=== PATIENT | male | born 1975 | race Caucasian/White ===

== ENCOUNTER 2022-06-09 07:22 | Outpatient (CLI) | payer OTHER, SELFPAY ==
--- NOTE | ~2022-06-09 | US_ITS ---
EXAMINATION: US retroperitoneal duplex ltd DATE: 06/09/2022 15:07 TRANSLATOR/INTERPRETER INDICATION: Essential hypertension. TECHNIQUE: Sonographic imaging of the kidneys was performed with a 3.5 MHz transducer. Retroperitone al duplex sonogram of the renal arteries also obtained. FINDINGS: No focal flow abnormalities are seen in the renal arteries on color Doppler. The peak syst olic velocity ranges of the right and left renal arteries and aorta are 61 cm per second, 46 cm per s econd, and 65 cm per second, respectively. The velocities and renal to aortic ratios are within arianna l limits. Incidental note is made of gallbladder polyps, largest measuring 6 mm. Renal echotexture is normal bilaterally without hydronephrosis, contour deforming mass or renal calcu li. Right kidney measures 12.9 cm. Left kidney measures 12.1 cm. IMPRESSION: 1. No Doppler evidence of renal artery stenosis. 2: Gallbladder polyps, largest measuring 6 mm. Reviewed, dictated and finalized at location A. SLATOR/INTERPRETER
[2022-06-09 07:38] LABS: Basophils Absolute Auto 0.09 K/mm3 (0.00-0.10); Basophils Percent Auto 1.3 % (0.0-1.0); Eosinophils Percent Auto 2.8 % (1.0-6.0); Hematocrit 54.6 % (40.0-54.0); Hemoglobin 18.4 g/dL (14.0-18.0); Immature Granulocyte Absolute 0.06 K/mm3 (0.00-0.00); Immature Granulocyte Percent A 0.8 % (0.0-0.0); Lymphocytes Absolute Auto 1.54 K/mm3 (1.10-4.50); Lymphocytes Percent Auto 21.6 % (18.0-42.0); Mean Corpuscular HGB Conc 33.7 g/dL (32.0-36.0); Mean Corpuscular Volume 89.1 fL (78.0-102.0); Mean Platelet Volume 10.3 fl (8.7-11.0); Monocytes Absolute Auto 0.59 K/mm3 (0.10-0.90); Monocytes Percent Auto 8.3 % (2.0-11.0); Neutrophils Absolute Auto 4.7 K/mm3 (1.7-7.2); Neutrophils Percent Auto 65.2 % (50.0-70.0); Platelet Count Result 275 K/mm3 (150-420); Red Blood Count 6.13 M/mm3 (4.70-6.10); Red Cell Distribution Width 13.6 % (11.6-14.4); White Blood Count 7.1 K/mm3 (4.8-10.8)
== END 2022-06-09 07:23 | disposition home or self-care (01) ==
LOC: CHSIMG 07:26
PROVIDERS: PCP Family Medicine; Visit Provider Physician Assistant
DX: D75.1 Secondary polycythemia (principal); I10 Essential (primary) hypertension
CPT/HCPCS: 36415; 85025; 93976

== ENCOUNTER 2022-09-21 16:34 | Outpatient (CLI) | payer OTHER, SELFPAY ==
[2022-09-21 16:56] LABS: Basophils Absolute Auto 0.09 K/mm3 (0.00-0.10); Basophils Percent Auto 1.2 % (0.0-1.0); Eosinophils Absolute Auto 0.21 K/mm3 (0.02-0.50); Eosinophils Percent Auto 2.7 % (1.0-6.0); Hematocrit 50.4 % (40.0-54.0); Hemoglobin 17.2 g/dL (14.0-18.0); Immature Granulocyte Absolute 0.05 K/mm3 (0.00-0.00); Immature Granulocyte Percent A 0.7 % (0.0-0.0); Lymphocytes Absolute Auto 1.54 K/mm3 (1.10-4.50); Mean Corpuscular HGB Conc 34.1 g/dL (32.0-36.0); Mean Corpuscular Hemoglobin 30.1 pg (27.0-31.0); Mean Corpuscular Volume 88.3 fL (78.0-102.0); Mean Platelet Volume 10.2 fl (8.7-11.0); Monocytes Absolute Auto 0.83 K/mm3 (0.10-0.90); Monocytes Percent Auto 10.8 % (2.0-11.0); Neutrophils Percent Auto 64.6 % (50.0-70.0); Platelet Count Result 311 K/mm3 (150-420); Red Blood Count 5.71 M/mm3 (4.70-6.10); Red Cell Distribution Width 14.1 % (11.6-14.4); White Blood Count 7.7 K/mm3 (4.8-10.8)
[2022-09-21 17:00] LABS: HCO3 ABG 26.9 mmol/L (23-29); Oxygen Content ABG 24.9 %vol (16.0-22.0); Oxygen Saturation ABG 95.9 % (95-97); Oxyhemoglobin 94.7 % (94-100); PCO2 ABG 35.4 mmHg (35-45); Total Hemoglobin 18.7 g/dL (12.0-18.0)
[2022-09-21 17:03] LABS: Device ROOM AIR; Modified Allen's Test Pass; Site Drawn LEFT RADIAL
[2022-09-26 05:04] LABS: Erythropoietin (EPO) 19.6 mIU/mL (2.6-18.5)
[2022-10-04 10:28] LABS: CALR Exon 9 Mutation Not Detected (Not Detected); CSF3R Exon 14/17 Mutation Not Detected (Not Detected); JAK2 Exon 12 Mutation Not Detected (Not Detected); JAK2 V617F Mutation Not Detected (Not Detected); MPL Exon 10 Mutation Not Detected (Not Detected)
== END 2022-09-21 16:35 | disposition home or self-care (01) ==
LOC: CHSLAB 16:38
PROVIDERS: PCP Family Medicine; Visit Provider Internal Medicine Hematology & Oncology
DX: D75.1 Secondary polycythemia (principal)
CPT/HCPCS: 36415; 36600; 81219; 81270; 81279; 81339; 81479; 82668; 82805; 85025; 88302; 88321

== ENCOUNTER 2023-04-28 07:12 | Outpatient (CLI) | payer OTHER, SELFPAY ==
--- NOTE | ~2023-04-28 | US_ITS ---
EXAMINATION: US right upper quadrant DATE: 04/28/2023 07:42 INDICATION: Gallbladder polyp. TECHNIQUE: Multiple grayscale and Doppler ultrasound images of the abdomen were obtained. COMPARISON: None FINDINGS: The visualized portions of the head, body, and tail of the pancreas are normal. There is a 1.9 cm hyperechoic mass in the liver. There is normal flow in main portal vein. The gallbladder is no rmal in size and contains sludge. No gallstones or gallbladder wall thickening. There is no sonograph ic Pereira sign. The common duct is normal and measures 3 mm. IMPRESSION: 1. Gallbladder sludge. No evidence of acute cholecystitis. 2. 1.9 cm hyperechoic liver mass. In the absence of known malignancy or chronic liver disease, this f inding is likely a hemangioma. Reviewed, dictated and finalized at location E. IMPRESSION: 1. Gallbladder sludge. No evidence of acute cholecystitis. 2. 1.9 cm hyperechoic liver mass. In the absence of known malignancy or chronic liver disease, this finding is likely a hemangioma.
== END 2023-04-28 07:13 | disposition home or self-care (01) ==
LOC: CHSIMG 07:13
PROVIDERS: PCP Family Medicine; Visit Provider Physician Assistant
DX: K82.4 Cholesterolosis of gallbladder (principal); K83.9 Disease of biliary tract, unspecified; R16.0 Hepatomegaly, not elsewhere classified
CPT/HCPCS: 76705

== ENCOUNTER 2024-02-21 17:21 | Emergency (ER) | payer OTHER, SELFPAY ==
[2024-02-21] VITALS (51 sets, daily range): BP systolic 112–174; BP diastolic 58–100; PULSE 64–126; RESP 15–27; TEMP 36.6; O2SAT 91–98
--- NOTE | ~2024-02-21 | XR_ITS ---
EXAMINATION: XR chest 1V portable DATE: 02/21/2024 17:58 INDICATION: Shortness of breath, chest pain/discomfort. TECHNIQUE: frontal view of the chest was obtained. COMPARISON: None FINDINGS: Wedge-shaped opacity projecting over the heart at the medial left lung base. No other airspace opacit ies, pulmonary edema, pleural effusion or pneumothorax. Heart size is within normal limits for AP dom hnique. IMPRESSION: 1. Wedge-shaped opacity medial left lung base which could represent atelectasis or pneumonia. Reviewed, dictated and finalized at location A.
--- NOTE | 2024-02-21 17:23 | ED.CHESTPAIN ---
HPI - Chest Pain General Chief Complaint: Chest Pain Stated Complaint: chest pain Time Seen by Provider: 02/21/24 17:23 Source: patient Mode of arrival: ambulatory Limitations: no limitations History of Present Illness HPI narrative: 48-year-old male with a history of hypertension on amlodipine, Coreg, dyslipidemia not on statins, MICHAEL on CPAP, positive family history of coronary artery disease( dad had his [place] at 52 years of age with multiple vascular procedures) presents to the ED with a 3 day history of -- chest discomfort. Chest discomfort is unprovoked without any relation to activity. -- lightheadedness which is worse on standing -- shortness of breath. He has shortness of breath at rest and with exercise. No paroxysmal nocturnal dyspnea. No fever or chills. nonsmoker. No history of drug use MD complaint: chest discomfort Onset (ago): day(s) ( Three days) Timing of current episode: episodic and constant Prior episodes: No Onset: during rest Pain location: substernal Pain radiation: none Severity: mild Quality: aching Relieving factors: nothing Exacerbating factors: nothing Treatment prior to arrival: none Risk Factors Coronary artery disease risk factors: hyperlipidemia and hypertension Thoracic aortic dissection risk factors: longstanding hypertension Related Data Home Medications Medication Instructions Recorded Confirmed amlodipine 10 mg tablet mg 02/21/24 carvedilol 25 mg tablet mg 02/21/24 hydrochlorothiazide 25 mg tablet mg 02/21/24 minocycline 100 mg capsule mg 02/21/24 02/21/24 testosterone cypionate 200 mg/mL mg 02/21/24 intramuscular oil Allergies Allergy/AdvReac Type Severity Reaction Status Date / Time No Known Allergies Allergy Verified 02/21/24 18:06 Review of Systems Review of Systems: All systems reviewed & are unremarkable except as noted in HPI and below Constitutional: Constitutional: Reports as per HPI and Reports no additional constitutional complaints Eyes: Eyes: Reports as per HPI and Reports no additional eye complaints ENT: Reports system reviewed and no additional complaints, except as documented and Reports as per HPI Cardiovascular: Cardiovascular: Reports as per HPI, Reports no additional cardiovascular complaints and Reports chest pain ( chest discomfort) Respiratory: Respiratory: Reports as per HPI and Reports dyspnea Gastrointestinal: Gastrointestinal: Reports as per HPI and Reports no additional gastrointestinal complaints Genitourinary: Genitourinary: Reports no additional male genitourinary complaints and Reports as per HPI Musculoskeletal: Musculoskeletal: Reports no additional musculoskeletal complaints and Reports as per HPI Integumentary/Breasts: Skin/Breast: Reports system reviewed and no additional complaints, except as docu and Reports as per HPI Neurologic: Reports system reviewed and no additional complaints, except as documented and Reports as per HPI Psychiatric: Psychiatric: Reports no additional psychiatric complaints, Reports as per HPI and Reports anxiety Endocrine: Endocrine: Reports no additional endocrine complaints and Reports as per HPI Hematologic/Lymphatic: Hematologic/Lymphatic: Reports no additional hematologic/lymphatic complaints and Reports as per HPI Allergic/Immunologic: Allergic/Immunologic: Reports no additional allergic/immunologic complaints and Reports as per HPI [facility] Past Medical History Medical History (Updated 02/21/24 @ 19:45 by Ean Caceres MD) Dyslipidemia Hypertension MICHAEL (obstructive sleep apnea) Exam Narrative: tachycardic with a heart rate of 118. Oxygen saturation of 96% on room air with a respiratory rate of 18. Const: General: ill appearing Orientation/consciousness: patient oriented x3 Limitations: no limitations HENMT: Head: normal to inspection Ears: external ears normal Face/Nose/Sinus: Normal external nose present Face and sinus: normal facial exam Mouth: Yes Ирина
--- NOTE | 2024-02-21 17:25 | ECG_ITS ---
Test Date: 2024-02-21 17:19:43 Measurements Intervals Buckner Rate: 119 P: 0 MI: 0 QRS: 2 QRSD: 98 T: 70 QT: 288 QTc: 406 Interpretive Statements ATRIAL FIBRILLATION WITH RAPID VENTRICULAR RESPONSE INTERPRETATION BASED ON A DEFAULT AGE OF 40 YEARS No previous ECG available for comparison Electronically Signed On 02-22-2024 14:19:01 CDT by Rick Muñoz M.D.
[2024-02-21] MEDS: Please add drug allergy info to patient profile. 1 EACH XX (17:40)
[2024-02-21 17:53] LABS: Basophils Percent Auto 1.1 % (0.0-1.0); Eosinophils Absolute Auto 0.24 K/mm3 (0.02-0.50); Eosinophils Percent Auto 2.7 % (1.0-6.0); Hematocrit 52.9 % (40.0-54.0); Hemoglobin 17.3 g/dL (14.0-18.0); Immature Granulocyte Absolute 0.04 K/mm3 (0.00-0.00); Immature Granulocyte Percent A 0.4 % (0.0-0.0); Lymphocytes Absolute Auto 1.86 K/mm3 (1.10-4.50); Lymphocytes Percent Auto 20.8 % (18.0-42.0); Mean Corpuscular HGB Conc 32.7 g/dL (32-36); Mean Corpuscular Hemoglobin 27.2 pg (27.0-31.0); Mean Corpuscular Volume 83.3 fL (78.0-102.0); Mean Platelet Volume 10.7 fl (8.7-11.0); Monocytes Absolute Auto 0.83 K/mm3 (0.10-0.90); Monocytes Percent Auto 9.3 % (2.0-11.0); Neutrophils Absolute Auto 5.89 K/mm3 (1.70-7.20); Neutrophils Percent Auto 65.7 % (50.0-70.0); Platelet Count Result 316 K/mm3 (150-420); Red Blood Count 6.35 M/mm3 (4.70-6.10); Red Cell Distribution Width 15.7 % (11.6-14.4)
[2024-02-21] MEDS: dilTIAZem HCl INJ 25 MG/5 ML VIAL 10 MG IV PUSH (18:16)
[2024-02-21] MEDS: ASPIRIN 81 MG CHEWABLE TABLET 324 MG PO (18:16)
[2024-02-21 18:30] LABS: Alanine Aminotransferase 32 U/L (16-63); Albumin Level 3.8 g/dL (3.4-5.0); Alkaline Phosphatase 69 U/L (46-116); Anion Gap 13 mmol/L (4-12); Aspartate Amino Transferase 24 U/L (15-37); Bilirubin,Total 1.5 mg/dL (0.00-1.00); Blood Urea Nitrogen 26 mg/dL (7-18); Carbon Dioxide 26 mmol/L (21-32); Chloride 98 mmol/L (98-108); Estimated CRCL calculation 81 ml/min; Estimated Glomerular Filt Rate 51; Glucose 85 mg/dL (70-99); NT Pro B Type Natriuretic Pept 219 pg/mL (0-125); Osmolality Calculated 287 mOsm/kg (285-295); Potassium 3.1 mmol/L (3.5-5.1); Sodium 137 mmol/L (136-145); Total Protein 7.7 g/dL (6.4-8.2)
[2024-02-21 18:31] LABS: Troponin I 6.5 ng/L (0.00-60.4)
[2024-02-21 18:43] LABS: D Dimer 0.32 mg/L (0.19-0.50); Partial Thromboplastin Time 27.3 Sec (23.9-30.70); Prothrombin Time 11.2 Seconds (9.50-12.1)
--- NOTE | 2024-02-21 19:00 | PC.NURSE ---
REPORT GIVEN TO CHRIS FIERRO.
[2024-02-21] MEDS: LACTATED RINGERS 500 ML 999 ML IV CONT (20:46)
[2024-02-21] MEDS: POTASSIUM CHLORIDE 20 MEQ ER TABLET 40 MEQ PO (20:48)
== END 2024-02-21 23:31 | disposition home or self-care (01) ==
PROVIDERS: Emergency Provider Internal Medicine Critical Care Medicine
DX: I48.20 Chronic atrial fibrillation, unspecified (principal); N17.9 Acute kidney failure, unspecified; I10 Essential (primary) hypertension; Z79.899 Other long term (current) drug therapy
CPT/HCPCS: 36415; 71045; 80053; 83605; 83880; 84443; 84484; 85025; 85380; 85610; 85730; 93005; 96361; 96374; 99284; A9270; J7120

== ENCOUNTER 2024-04-18 17:32 | Outpatient (CLI) | payer OTHER, SELFPAY ==
[2024-04-18 18:27] LABS: Hemoglobin 17.4 g/dL (14.0-18.0)
[2024-04-18 18:30] VITALS: BP 140/82; PULSE 77; RESP 18; TEMP 36.6; O2SAT 97
[2024-04-18 19:08] VITALS: BMI 52.2
--- NOTE | 2024-04-18 19:33 | PC.NURSE ---
Patient arrived on floor@1815 after being seen in lab for H&H. Patient #20 G IV initiate after obtaining H&H results. Pretreatment vitals Temp 97.9, BP 140/82, P 77, R 18. Denies pain. 250 ml of blood removed. IV discontinued intact. Pressure applied to the site for 7 minutes then dressing applied. Arm elevated during removal. Discharge instructions explained to patient and paper with instructions sent home with patient. Discharge vitals Temp 98, BP 140/79, P73, R 18, SPo2 96. Patient offered no c/o side effects from procedure and states he understood instructiions.
== END 2024-04-18 17:33 | disposition home or self-care (01) ==
PROVIDERS: Visit Provider Internal Medicine Hematology & Oncology
DX: D75.1 Secondary polycythemia (principal)
CPT/HCPCS: 36415; 85014; 85018

== ENCOUNTER 2024-07-11 16:29 | Outpatient (CLI) | payer OTHER, SELFPAY ==
[2024-07-11 16:50] VITALS: BP 175/92; PULSE 108; RESP 18; TEMP 37; O2SAT 94; BMI 44.5
[2024-07-11 16:50] LABS: Hematocrit 55.1 % (40.0-54.0); Hemoglobin 17.8 g/dL (14.0-18.0)
== END 2024-07-11 16:30 | disposition home or self-care (01) ==
PROVIDERS: PCP Family Medicine; Visit Provider Internal Medicine Hematology & Oncology
DX: D75.1 Secondary polycythemia (principal)
CPT/HCPCS: 36415; 85014; 85018; 99195

== ENCOUNTER 2024-09-12 16:38 | Outpatient (CLI) | payer OTHER, SELFPAY ==
[2024-09-12 17:00] LABS: Hemoglobin 17.4 g/dL (14.0-18.0)
--- OUTSIDE RECORDS SUMMARY | 2024-09-12 17:36 | XMS_ITS | Encounter Summary ---
Author Organization [facility] Address [address] [place] [address] Care Team Providers Care Supervisor Sewer System Name Role Phone Mary Anne Cisneros MD Primary Care Provider Encounter Details Date Type Department Care Team (Late st Contact Info) Description 09/10/2024 External Device Data [place] ABSTRACTION Provider, Abstract NO ADDRESS ON FILE Social History Tobacco Use Types Packs/Day Years Used Date Smoking Tobacco: Never Smokeless Tobacco: Never Alcohol Use Standard Drinks/Week Comments Not Currently 0 (1 standard drink = 0.6 oz pur e alcohol) Feeling Safe Answer Date Recorded Are you in a relationship wi th someone who hurts you emotionally and/or physically? 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 Legal Sex Male 7:15 PM CDT Gender Identity Male 08/13/2024 8:34 AM REPTILE FARMER Sexual Orientation Straight 08/13/2024 8: 34 AM REPTILE FARMER documented as of this encounter Plan of Treatment Upcoming Encounters Date Type Department Care Team (Late st Contact Info) Description 11/15/2024 3:00 PM CDT Office Visit [facility] [place] [address] [place] [address] Ricarda Ingram, DRESSMAKING TEACHER [address] [facility] [address] [place] [address] documented as of this encounter Visit Diagnoses Not on filedocumented in this encounter Care Teams Supervisor Sewer System Relationship Specialty Start Date End Date Mary Anne Cisneros MD [address] [place] [id number] PCP - General Family Practice 02/22/24 documented as of this encounter
--- OUTSIDE RECORDS SUMMARY | 2024-09-12 17:36 | XMS_ITS | Patient Health Summary ---
Author Organization [facility] Address [address] [place] [address] Care Team Providers Care Medical Customer Service Representative Name Role Phone Unavailable Primary Care Provider Unavailabl e Note from [facility],non-owned Affiliates and Associated Physician Practices is amultiple site organization consisting of ambulatory clinics and hospital sitesin [place], [place], [place] and [place]. This disclosure is being madepursuant to the Care Everywhere program and may not contain all information available regarding this patient. Last updated 18.[facility] Allergies No known active allergies Medications * Be aware that medications may not be up to date on this document. Alwaysverify current medications with the patient. * HYDROCHLOROTHIAZIDE PO * AmLODIPine Besylate (NORVASC PO) * Metoprolol Succinate (TOPROL XL PO) Social History Tobacco Use Types Packs/Day Years Used Date Smoking Tobacco: Never Assessed Sex and Gender Information Value Date Recorded Sex Assigned at Not on file Gender Identity Not on file Sexual Orientation Not on file Last Filed Vital Signs Vital Sign Reading Time Taken Comments Blood Pressure 134/82 01/14/2018 12:23 PM CDT Pulse - - Temperature 36.8 C (98.2 F) 01/14/2018 12:23 PM CDT Respiratory Rate 16 01/14/2018 12:23 PM CDT Oxygen Saturation - - Inhaled Oxygen Concentration - - Weight 133.8 kg (295 lb) 01/14/2018 12:23 PM CDT Height 177.8 cm (5' 10 ) 01/14/2018 12:23 PM CDT Body Mass Index 42.33 01/14/2018 12:23 PM CDT
--- OUTSIDE RECORDS SUMMARY | 2024-09-12 17:36 | XMS_ITS | Clinical Summary ---
Author Organization [facility] [place] [place] Address [address] [place] [address] Care Team Providers Care Reprographics Associate Name Role Phone Unavailable Primary Care Provider Unavailabl e Source Comments [facility],non-owned Affiliates and Associated Physician Practices is amultiple site organization consisting of ambulatory clinics and hospital sitesin [place], [place], [place] and [place]. This disclosure is being madepursuant to the Care Everywhere program and may not contain all information available regarding this patient. Last updated 18.[facility] [place] [place] Allergies No known active allergies Medications * Be aware that medications may not be up to date on this document. Alwaysverify current medications with the patient. Medication Sig Dispensed Refills Start Date End Date Status HYDROCHLOROTHIAZIDE PO Ac tive AmLODIPine Besylate (NORVASC PO) Active Metoprolol Succinate (TOPROL XL PO) Active Social History Tobacco Use Types Packs/Day Years [...] Mass Index 42.33 01/14/2018 12:23 PM CDT Plan of Treatment Health Maintenance Due Date Last Done Comments BLACK (AGES 45-75) - COL ON CA SCREENING 1976 COLON MONITORING 1976 COLONOSCOPY - COLON CA SCREENING 1976 CT COLONOGRAPHY - COLON CA SCREENING 1976 Colorectal Cancer Screening 1976 FIT - COLON CA SCREENING 1976 FLEX SIG - COLON CA SCREENING 1976 LIPID TESTING 1976 HIV SCREENING 12/10/1991 HEPATITIS C SCREENING 12/05/1994 DTAP/TDAP/TD VACCINES (1 - Tdap) 12/10/1995 HEPATITIS B VACCINE (1 of 3 - 19+ 3-dose series) 12/10/1995 SCREENING FOR DIABETES 01/14/2018 COVID-19 VACCINE (1 - 2023-2 5 season) 2024 INFLUENZA VACCINE (#1) 2024 DEPRESSION SCREENING 07/03/2024 ZOSTER VACCINE (1 of 2) 2026 HIB VACCINE Aged Out No longer eligi ble based on patient's age to complete this topic HPV VACCINE Aged Out No longer eligi ble based on patient's age to complete this topic MENINGOCOCCAL (Group B) VACC INE SHARED DECISION-MAKING Aged Out No longer eligibl e based on patient's age to complete this topic MENINGOCOCCAL GROUPS A/C/Y/W VACCINE Aged Out No longer eligible b ased on patient's age to complete this topic PNEUMOCOCCAL VACCINE Aged Out No long er eligible based on patient's age to complete this topic
--- OUTSIDE RECORDS SUMMARY | 2024-09-12 17:36 | XMS_ITS | Clinical Summary ---
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 Gender Identity Not on file Sexual Orientation Not on file Plan of Treatment Health Maintenance Due Date Last Done Comments Colorectal Cancer Screening Colonoscopy (10 Years) 1976 Annual Physical 12/10/1979 Hepatitis C 1994 DTaP, Tdap and Td Vaccines ( 1 - Tdap) 12/10/1995 12/02/1981 Hepatitis B Vaccines (1 of 3 - 19+ 3-dose series) 12/10/1995 COVID-19 Vaccine (2023-2 5 season) 2024 Influenza Adult (#1) 2024 Meningococcal B Vaccine Aged Out No l onger eligible based on patient's age to complete this topic Meningococcal Vaccine Aged Out No jolly gavin eligible based on patient's age to complete this topic Pneumococcal Vaccine: Pediat rics (0 to 5 Years) and At-Risk Patients (6 to 64 Years) Aged Out No longer eligi ble based on patient's age to complete this topic RSV Immunizations Under 20 Months Aged Out No longer eligible based on patient's age to complete this topic Insurance [employer] Care Teams Back Padder Relationship Specialty Start Date End Date Mary Anne Cisneros MD [address] [place] [phone] PCP - General FAMILY PRACTICE 11/07/20
--- OUTSIDE RECORDS SUMMARY | 2024-09-12 17:36 | XMS_ITS | Clinical Summary ---
Author Organization [facility] Address [address] [place] [address] Phone Care Team Providers Care Hat Mender Name Role Phone Mary Anne Cisneros MD Primary Care Provider [phone] Allergies No known active allergies Medications minocycline (MINOCIN) 100 mg capsule Take 100 mg by mouth every 12 hours. Active aspirin (JULIANNE CHEWABLE) 81 mg Tablet, Chewable Take 81 mg by mouth daily. Active testosterone cypionate (DEPO-TESTOSTER ONE) 200 mg/mL Oil 1 (ONE) MILLILITER WITHIN MUSCLE WEEKLY 4 Active hydroCHLOROthia zide 25 mg tablet Take 1 Tablet (25 mg) by mouth daily. 30 Tablet 3 4 Active apixaban (ELIQUIS) 5 mg tablet Take 1 Tablet (5 mg) by mouth 2 times daily. 60 Tablet 1 4 Active amLODIPine (NORVASC) 5 mg tablet Take 1 Tablet by mouth daily. 5 Active metoprolol succinate (TOPROL XL) 100 mg Extended Release 24 hour tablet Take 1.5 Tablets by mouth daily. 5 Active Active Problems Problem Noted Date Diagnosed Date Paroxysmal atrial fibrillation 03/05/2024 Chest pressure 03/05/2024 MICHAEL (obstructive sleep apnea) 03/05/2024 Chest pain 03/03/2024 Persistent atrial fibrillation 03/03/2024 Primary hypertension 03/03/2024 Primary sleep apnea of 03/03/2024 Morbid obesity 03/03/2024 Dyspnea on exertion 03/03/2024 Polycythemia 02/22/2024 Atrial fibrillation with rapid ventricular respo nse 02/22/2024 Exertional dyspnea 02/22/2024 Hyperlipidemia 02/22/2024 Morbid obesity with BMI of 40.0-44.9, adult 02/01 Encounters Date Type Department Care Team Description 09/10/2024 External Device Data STL ABSTRACTION Provider, Abstract 09/03/2024 External Device Data STL ABSTRACTION Provider, Abstract 08/27/2024 External Device Data [facility] ABSTRACTION Provider, Abstract 08/15/[address] [facility] AT [address] [place] [address] Get Moody MD scheduling of afib ablation 08/14/2024 3:00 PM MEDICAL STAFF DIRECTOR Video Visit [facility] AT [address] [place] [address] Clara Murphy NP Paroxysmal atrial fibrillation (CMS/HCC) (Primary Dx); Benign hypertension; Polycythemia; Elevated serum creatinine 08/13/2024 External Device Data STL ABSTRACTION Provider, Abstract 08/13/2024 External Device Data ST[facility] ABSTRACTION Provider, Abstract 08/06/2024 External Device Data ST[facility] ABSTRACTION Provider, Abstract 08/02/2024 Results Follow-Up [facility] AT [address] [place] [address] aL Moura RN BASIC METABOLIC PANEL 07/31/2024 10:30 AM MEDICAL STAFF DIRECTOR Office Visit [facility] AT [address] [place] [address] Get Moody MD Paroxysmal atrial fibrillation (CMS/HCC) (Primary Dx); Benign hypertension; At risk for amiodarone toxicity with long-term use 07/31/2024 External Device Data STL ABSTRACTION Provider, Abstract 07/25/2024 External Device Data STL ABSTRACTION Provider, Abstract 07/16/2024 External Device Data STL ABSTRACTION Provider, Abstract 06/24/2024 Refill [facility] - [facility] [address] [place] [address] Traci Avery FNP 06/24/2024 [facility] - [facility] [address] [place] [address] Fly Bryan MD 06/18/2024 External Device Data STL ABSTRACTION Provider, Abstract from Last 3 Months Family History Medical History Relation Name Comments Heart Disease Father No Known Problems Mother Relation Name Status Comments Father Mother Social History Tobacco Use Types Packs/Day Years [...] Sex Assigned at Male 08/13/2024 8:34 AM MEDICAL STAFF DIRECTOR Legal Sex Male 7:15 PM CDT Gender Identity Male 08/13/2024 8:34 AM MEDICAL STAFF DIRECTOR Sexual Orientation Straight 08/13/2024 8: 34 AM MEDICAL STAFF DIRECTOR Last Filed Vital Signs Vital Sign Reading Time Taken Comments Blood Pressure 152/88 07/31/2024 10:33 AM MEDICAL STAFF DIRECTOR Pulse 74 07/31/2024 10:33 AM MEDICAL STAFF DIRECTOR Temperature 37.1 C (98.7 F) 03/05/2024 12:30 PM CDT Respiratory Rate 32 03/05/2024 1:57 PM CDT Oxygen Saturation 97% 07/31/2024 10:33 AM MEDICAL STAFF DIRECTOR Inhaled Oxygen Concentration - - Weight 142.9 kg (315 lb) 08/14/2024 2:48 PM MEDICAL STAFF DIRECTOR Height 177.8 cm (5' 10 ) 08/14/2024 2:48 PM MEDICAL STAFF DIRECTOR Body Mass Index 45.2 08/14/2024 2:48 PM MEDICAL STAFF DIRECTOR Plan of Treatment Upcoming Encounters Date Type Department Care Team (Late st Contact Info) Description 11/15/2024 3:00 PM CDT Office Visit [facility] AT [facility] [address] [place] [address] Ricarda Ingram NP [address] [place] [address] Health Maintenance Due Date Last Done Comments DTAP/TDAP/TD VACCINES (1 - Tdap) 12/10/1995 HEPATITIS B VACCINES (1 of 3 - 19+ 3-dose series) 03/1996 COLORECTAL SCREENING 2021 Colorectal Cancer Screening 2021 FIT-DNA Q 3 years 2021 FIT/FOBT Q 1 year 2021 Flex Sig/CT Colonography Q 5 years 2021 INFLUENZA VACCINE (#1) 2024 Preventative Visit- Commercial 07/03/2024 Pre-Diabetes and Diabetes Screening 02/21/202702/21 Procedures Procedure Name Priority Date/Time Associated Diagnosis Comments BASIC METABOLIC PANEL Routine 08/01/2024 11:27 AM MEDICAL STAFF DIRECTOR Paroxysmal atrial fibrillation (CMS/HCC) MA ECG ROUTINE ECG W/LEAST 12 LDS W/I&R Routine 07/31/2024 11:22 AM MEDICAL STAFF DIRECTOR Paroxysmal atrial fibrillation (CMS/HCC) HEMOGLOBIN A1C Routine 02/22/2024 3:07 AM CDT from Last 3 Months or Most Recently Relevant to Health Maintenance Results * (ABNORMAL) BASIC METABOLIC PANEL (08/01/2024 11:27 AM MEDICAL STAFF DIRECTOR) GLUCOSE 81 65 - 139 mg/dL [facility] Comment: Non-fasting reference interval BUN 17 7 - 25 mg/dL [facility] CREATININE 1.75(H) 0.60 - 1.29 mg/dL [facility] GFR 48(L) > OR = 60 mL/min/1. 73m2 [facility] BUN/CREAT RATIO 10 6 - 22 (calc) [facility] SODIUM 140 135 - 146 mmol/L [facility] POTASSIUM 4.5 3.5 - 5.3 mmol/L [facility] CHLORIDE 103 98 - 110 mmol/L [facility] CO2 29 20 - 32 mmol/L [facility] CALCIUM 9.2 8.6 - 10.3 mg/dL [facility] Comment: FASTING:NO FASTING: NO Test Performed at: [facility] [address] [place] [address] Alexey Younger Blood 08/01/2024 11:2 7 AM MEDICAL STAFF DIRECTOR 08/02/2024 12:18 AM MEDICAL STAFF DIRECTOR Get Moody MD CHEMISTRY ORDERABLES Final Res ult [facility] [phone] [place] [address] [place] [address] * MA ECG ROUTINE ECG W/LEAST 12 LDS W/I&R (07/31/2024 11:22 AM MEDICAL STAFF DIRECTOR) Narrative [facility] - 07/31/2024 11:22 AM MEDICAL STAFF DIRECTOR Get Moody MD 07/31/2024 11:22 AM Normal sinus rhythm at 67 bpm. QTc interval 414 ms. Get Moody MD ECG ORDERABLES Final Result [facility] CLIA #[id number] [address] [facility] [address] [place] [address] * HEMOGLOBIN A1C (02/22/2024 3:07 AM CDT) HEMOGLOBIN A1C 5.2 <5.7 % 02/22/2024 5:24 AM CDT [facility] EST. AVG GLUCOSE, A1C 103 mg/dL 02/22/2024 5:24 AM CDT [facility] Blood Venipuncture / Unknown 02/22/2024 3:07 AM CDT 02/22/2024 3:17 AM CDT Narrative [facility] - 02/22/2024 5:24 AM CDT HGB A1C INTERPRETATION NORMAL: <5.7% PRE-DIABETES: 5.7 - 6.4% DIABETES: 6.5% OR GREATER us Filiberto Montiel MD CHEMISTRY ORDERABLES Final Resu lt [facility] CLIA# [id number] [address] [address] from Last 3 Months or Most Recently Relevant to Health Maintenance Insurance RX [employer] Commercial RX [employer] Commercial RX [employer] Commercial [facility] [id number] POS II Advance Directives For more information, please contact: [phone] * Full Code (Latest Code Status on File) Date Activated Date Inactivated Comments 03/03/2024 7:26 AM 03/05/2024 4:25 PM * Full Code Date Activated Date Inactivated Comments 02/22/2024 1:54 AM 02/23/2024 5:57 PM Care Teams Hat Mender Relationship Specialty Start Date End Date Mary Anne Cisneros MD [address] [place] [id number] PCP - General Family Practice 02/22/24
--- OUTSIDE RECORDS SUMMARY | 2024-09-12 17:36 | XMS_ITS | Referral Summary ---
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 Care Teams Solderer Electronic Relationship Specialty Start Date End Date Mary Anne Cisneros MD [address] [place] [address] PCP - General Family Medicine 06/10/22
--- OUTSIDE RECORDS SUMMARY | 2024-09-12 17:36 | XMS_ITS | Referral Summary ---
Author Organization [facility] Address [address] 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 This disclosure is being madepursuant to the Care Everywhere program and may not contain all information available regarding this patient. Last updated 18.[facility] Allergies No known active allergies Medications * [...] 01/14/2018 12:23 PM CDT Plan of Treatment Not on file
--- OUTSIDE RECORDS SUMMARY | 2024-09-12 17:36 | XMS_ITS | Clinical Summary ---
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 Care Teams Professor Of Education Relationship Specialty Start Date End Date Mary Anne Cisneros MD [address] [place] [address] PCP - General Family Medicine 06/10/22
--- NOTE | 2024-09-12 18:45 | PC.NURSE ---
Patient placed in room 226 for phlebotomy. IV started in 2 sticks. Scale turned on and zeroed. Weight applied and showed 500 grams. Patient attached to drainage bag and bag placed on scale. 265 grams (250 ml) removed. IV discontinued pressure dressing applied. Discharge instructions given and patient verbalized understanding. Patient ambulated to car. No c/o offered.
== END 2024-09-12 17:50 | disposition home or self-care (01) ==
PROVIDERS: PCP Family Medicine; Visit Provider Internal Medicine Hematology & Oncology
DX: D75.1 Secondary polycythemia (principal)
CPT/HCPCS: 36415; 85014; 85018; 99195

== ENCOUNTER 2024-11-19 16:37 | Outpatient (CLI) | payer OTHER, SELFPAY ==
--- OUTSIDE RECORDS SUMMARY | 2024-11-19 16:40 | XMS_ITS | Referral Summary ---
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
--- OUTSIDE RECORDS SUMMARY | 2024-11-19 16:40 | XMS_ITS | Clinical Summary ---
Author Organization [facility] Address [address] [place] [address] Phone Care Team Providers Care Last Inserter Name Role Phone Mary Anne Cisneros MD Primary Care Provider [phone] Allergies No known active allergies Medications minocycline [...] mg Extended Release 24 hour tablet Take 1 Tablet (100 mg) by mouth daily. 5 Active furosemide (Lasix) 20 mg tablet Take 1 Tablet by mouth 1 time daily as needed for weight gain more than 2 POUNDS in 24 hours. 5 Tablet 10/15/2024 2:08 PM CDT 5 Active Active Problems Problem Noted Date [...] Encounters Date Type Department Care Team Description 11/15/2024 3:00 PM CDT Office Visit [facility] HEART AND VASCULAR EP AT [address] [place] [address] Ricarda Ingram NP Paroxysmal atrial fibrillation (CMS/HCC) (Primary Dx); History of cardiac ablation for atrial fibrillation (CMS/HCC); Current use of anticoagulant therapy; Benign hypertension; Elevated serum creatinine 11/12/2024 External Device Data [facility] ABSTRACTION Provider, Abstract 11/12/2024 External Device Data [facility] ABSTRACTION Provider, Abstract 11/05/2024 External Device Data [facility] ABSTRACTION Provider, Abstract 10/15/2024 8:01 AM CDT Anesthesia Event [facility] Research And Evaluation Analyst [address] [place] [phone] Berlin Waller MD 10/15/2024 7:30 AM CDT - 10/15/2024 10:45 AM CDT Surgery [facility] Research And Evaluation Analyst [address] [place] [phone] Get Moody MD PVI ablation 10/15/2024 5:25 AM CDT - 10/15/2024 2:14 PM CDT Hospital Encounter [facility] Interventional Care [address] [place] [phone] Get Moody MD PAF (paroxysmal atrial fibrillation) (CMS/HCC) Discharge Disposition: Home or Self Care 10/15/2024 External Device Data STL ABSTRACTION Provider, Abstract 10/10/2024 Telephone [facility] Heart [facility] V[facility] At [address] [place] [address] Get Moody MD Question 10/08/2024 Travel 10/01/2024 External Device Data [facility] ABSTRACTION Provider, Abstract 09/18/2024 Telephone [facility] EP AT [address] [place] [address] Get Moody MD Ablation instruction letter 09/18/2024 Prep for Surgery [facility] EP AT [address] [place] [address] Get Moody MD Atrial fibrillation with rapid ventricular response (CMS/HCC) (Primary Dx) 09/18/2024 Refill [facility] Heart [facility] V[facility] At [address] [place] [address] Fly Bryan MD 09/11/2024 External Device Data [facility] ABSTRACTION Provider, Abstract 09/10/2024 External Device Data [facility] ABSTRACTION Provider, [...] No 03/02/2024 Food Insecurity Answer Date Recorded Patient needs follow up regardin 10/23/2024 Transportation Needs Answer Date Record ed Patient needs follow up regardin 10/23/2024 Housing Stability Answer Date Recorded Social/Environmental Concerns No concerns Utility Needs Answer Date Recorded Patient needs follow up regardin 10/23/2024 Sex and Gender Information Value Date Recorded Sex Assigned at Male 08/13/2024 8:34 AM SLASHER TENDER Legal Sex Male 7:15 PM CDT Gender Identity Male 08/13/2024 8:34 AM SLASHER TENDER Sexual Orientation Straight 08/13/2024 8: 34 AM SLASHER TENDER Last Filed Vital Signs Vital Sign Reading Time Taken Comments Blood Pressure 130/78 11/15/2024 3:02 PM CDT Pulse 89 11/15/2024 3:02 PM CDT Temperature 36.1 C (97 F) 10/15/2024 10:16 AM CDT Respiratory Rate 16 11/15/2024 3:02 PM CDT Oxygen Saturation 96% 11/15/2024 3:02 PM CDT Inhaled Oxygen Concentration - - Weight 149.7 kg (330 lb) 11/15/2024 3:02 PM CDT Height 177.8 cm (5' 10 ) 11/15/2024 3:02 PM CDT Body Mass Index 47.35 11/15/2024 3:02 PM CDT Plan of Treatment Upcoming Encounters Date Type Department Care Team (Late st Contact Info) Description 05/19/2025 3:45 PM SLASHER TENDER Office Visit [facility] EP AT [place] [address] [facility] [address] [place] [address] Frank Henriquez MD [address] [place] [address] [address] [place] [address] Health Maintenance Due Date Last Done Comments DTAP/TDAP/TD VACCINES (1 - Tdap) 12/10/1995 HEPATITIS B VACCINES (1 of 3 - 19+ 3-dose series) 03/1996 COLORECTAL SCREENING 2021 Colorectal Cancer Screening 2021 FIT-DNA Q 3 years 2021 FIT/FOBT Q 1 year 2021 Flex Sig/CT Colonography Q 5 years 2021 INFLUENZA VACCINE (#1) 2024 Preventative Visit- Commercial 07/03/2024 Pre-Diabetes and Diabetes Screening 02/21/202702/21 Medical Devices Implanted Type Area Plumbing Service Technician Device Identifier Shelf Expiration Date Model / Serial / Lot Dev Cardiva Vascade Mvp Xl Vvcs 10-12fr [id number] - [id number] Implanted:Qty : 1 on 10/15/2024 by Get Moody MD at [facility] Closure Device Right: Groin [employer] [id number] 07/11/2026 [id number] L / / [id number] Dev Vns Vasc Clsr Vascade Mvp St [id number] - [id number] Implanted:Qty : 1 on 10/15/2024 by Get Moody MD at [facility] Closure Device Left: [employer]matic [employer] NOA [id number] 09/09/2026 800-612C- [id number] / / [id number] Dev Vns Vasc Clsr Vascade Mvp St [id number] - [id number] Implanted:Qty : 1 on 10/15/2024 by Get Moody MD at [facility] Closure Device Left: Tangler [employer] [id number] 09/09/2026 800-612C- 10U / / [id number] [id number] Procedures Procedure Name Priority Date/Time Associated Diagnosis Comments WA ECG ROUTINE ECG W/LEAST 12 LDS W/I&R Routine 11/15/2024 3:30 PM CDT Paroxysmal atrial fibrillation (CMS/HCC) PVI ABLATION Routine 10/15/2024 10:01 AM CDT PAF (paroxysmal atrial fibrillation) (CMS/HCC) POC ACTIVATED CLOTTING TIME Routine 10/15/2024 9:53 AM CDT POC ACTIVATED CLOTTING TIME Routine 10/15/2024 9:33 AM CDT POC ACTIVATED CLOTTING TIME Routine 10/15/2024 9:16 AM CDT MAGNESIUM LEVEL Stat 10/15/2024 9:00 AM CDT BASIC METABOLIC PANEL Stat 10/15/2024 9:00 AM CDT PROTIME-INR Stat 10/15/2024 9:00 AM CDT ECHO TRANSESOPHAGEAL W DOPPLER AND COLOR FLOW Routine 10/15/2024 8:47 AM CDT Paroxysmal atrial fibrillation (CMS/HCC) TYPE AND SCREEN Routine 10/15/2024 8:40 AM CDT WA ANES INSERT CATH, ART, PERCUT, SHORTTERM Routine 10/15/2024 8:31 AM CDT WA ANES INSERT ENDOTRACHEAL AIRWAY Routine 10/15/2024 8:22 AM CDT VERIFICATION BLOOD GROUP Stat 025 7:55 AM CDT Encounter for blood typing CBC WITH DIFFERENTIAL Stat 10/15/2024 7:55 AM CDT POC LACTIC ACID Routine 10/15/2024 7:49 AM CDT OXIMETRY Routine 10/15/2024 7:49 AM CDT METHEMOGLOBIN QUANTITATIVE Routine 10/15/2024 7:49 AM CDT CARBOXYHEMOGLOBIN Routine 10/15/2024 7:4 9 AM CDT BLOOD GAS,(INCL. H+H, LYTES, GLUC) Routine 10/15/2024 7:49 AM CDT HEMOGLOBIN A1C Routine 02/22/2024 3:07 AM CDT from Last 3 Months or Most Recently Relevant to Health Maintenance Results * WA ECG ROUTINE ECG W/LEAST 12 LDS W/I&R (11/15/2024 3:30 PM CDT) Narrative [facility] - 11/15/2024 3:30 PM CDT Ricarda Ingram NP 11/15/2024 3:30 PM Sinus rhythm 85 bpm us Ricarda Ingram NP ECG ORDERABLES Final R esult [facility] CLIA #[id number] Includes [facility], [facility] [address] [place] [address] * PVI ABLATION (10/15/2024 10:01 AM CDT) Narrative [facility] - 10/15/2024 10:32 AM CDT Atrial Fibrillation Ablation Operative Report Name: Zach Ocampo Jr. : 1975 Date: 10/15/2024 Preoperative Diagnosis: 1. Paroxysmal atrial fibrillation Post operative Diagnosis: 1. Paroxysmal atrial fibrillation Ice Scraper: Get Moody MD Procedure Performed: 1. Ablation of atrial fibrillation by pulmonary vein isolation (14159) 2. LV pacing and recording (06541) 3. NORTH with color flow and doppler Procedure Summary: 1. At baseline patient was in sinus rhythm 2. Procedure was performed under general anesthesia. 3. Successful trans-septal puncture performed under ICE guidance. 4. Using fluoroscopy and 3D Anatomic mapping (CARTO), 4 pulmonary veins, esophagus(using temperature probe) identified and left atirum shell created. 5. Using pulsed field ablation, wide area circumferential ablation (WACA) performed around both left (2 veins) and right (2 veins). 6. Isolation was confirmed of all 4 pulmonary veins 7. No sustained arrhythmia could be induced with burst atrial pacing. 8. Post RFA - no effusion on ICE 9. Normal sinus node function 10. Normal AV node conduction 11. Normal infra-Hisian conduction 12. No VA conduction Recommendations - Bedrest for 2 hours. - Antiarrhythmic therapy: None - Beta yas:Reduce metoprolol succinate dose to 100 mg daily - Lasix 20mg IV tonight. - Lasix 20 mg p.o. as needed as outpatient. - Continue rest of the home medications. - Disposition: Plan for discharge today - No heavy lifting for a week. - Follow up in 1 month. Anesthesia: General Complications: None Operative Course: NORTH: LVEF: 55-60% No thrombus or smoke noted in left atrium and left atrial appendage. Mitral valve: Mild mitral regurgitation. Tricuspid valve: Mild tricuspid regurgitation. Aortic valve: No aortic regurgitation and no aortic stenosis. Pulmonic valve: Not well visualized. Trace pulmonic regurgitation The risks and benefits of sedation, electrophysiology study, trans-septal puncture, endocardial pulsed field ablation, possible direct current cardioversion, and radiofrequency ablation were explained to the patient in detail. Risks included, but not limited to bleeding complications, hematoma, deep vein thrombosis, pulmonary embolism, heart block requiring pacemaker, myocardial perforation, stroke and or ; with a major complication rate of 1.5 to 3%. The patient expressed verbal understanding and agreed to proceed with the procedure as outlined. Informed written consent was signed and placed in the chart prior to proceeding. After informed consent was obtained, the patient was brought to the Cardiac Electrophysiology Laboratory in a fasting state and was prepped and draped in the usual sterile fashion. General anesthesia was utilized. Please see nursing notes for drug totals.The patient presented in sinus rhythm. A NORTH probe was placed by anesthesia. I performed the NORTH using both color flow and doppler. Access was obtained by modified Seldinger technique to right femoral vein. An 8 Georgian and a 9 Georgian sheath was placed in the left femoral vein and an 8 Fr sheath was placed in the right femoral vein using ultrasound. Under ultrasound guidance, documentation of vessel patency, needle access with permanent recording, and reporting was performed followed by placement of a sheath in the femoral veins. All sheaths were flushed appropriately. A SoundStar intracardiac echo (ICE) phased array catheter was advanced from the 9 Georgian sheath into the right atrium. A duodecapolar catheter was advanced from the 8 Georgian sheath into the coronary sinus under fluoroscopy guidance. A 14 Georgian dilator was used to dilate the right femoral vein. Subsequently, Faradrive steerable sheath with versa cross connect dilator was advanced to the right atrium over a long [place] wire. Using fluoroscopic and ultrasound guidance, the trans-septal puncture was performed. The Faradrive sheath was then advanced into the left atrium without issue. Heparin was given with periodic ACT with goal ACT of 250-350 throughout the case. Faradrive sheath was connected to heparinized saline for continuous flushing. Intracardiac echocardiogram was used to visualize the heart with no effusion noted after trans-septal access and at the conclusion of the case. An Octaray catheter was then inserted into the left atrium. A 3D map with voltage was then constructed with Carto mapping system. All four pulmonary veins were interrogated. Next, a 31 mm Farapulse catheter was then advanced into the sheath and subsequently into the left atrium. 8 PFA lesions (4 basket and 4 flower) were delivered adjacent to the ostia of all 4 pulmonary veins. Contact was verified by fluoroscopy, 3D mapping, and ICE visualization. All 4 pulmonary veins were isolated as demonstrated by entrance and exit block. This was confirmed by pacing and/or recording pulmonary vein activity. Once PV isolation was complete, I placed the mapping catheter in the LV and performed pacing at 10mA. There was no VA conduction. With burst atrial pacing down to 230 ms, no sustained arrhythmia could be induced. At the end of the case, no pericardial effusion was noted on intracardiac echocardiographic imaging. IV protamine was given, sheaths were removed in the EP lab, hemostasis was obtained using VASCADE MVP and manual pressure. The patient was sent to the recovery room in stable condition. Pre ablation surface EKG RR 679 ms? WA 137 ms? QRS 70 ms? QT 349 ms? Post ablation surface EKG and EPS as below: RR 874 ms? WA 176 ms? QRS 71 ms? QT 328 ms? AH 68 ms? HV 50 ms? AVWB 390 ms? VAWBCL No VA conduction? AVNERP 600/310 ms? Total PFA applications: 42 Get Moody MD, LOCATED WITHIN [facility] 10/15/2024 10:25 AM Get Moody MD CUP EP ORDERABLES Final Result [facility] CLIA# [id number] [address] [place] [address] * (ABNORMAL) POC ACTIVATED CLOTTING TIME (10/15/2024 9:53 AM CDT) Only the most recent of3 resultswithin the time period is included. ACTIVATED CLOTTING TIME POC 210(H) 74 - 137 sec 10/15/2024 9:53 AM CDT [facility] Comment:ACT testing performe d on ISTAT ACT-Kaolin cartridge. Blood 10/15/2024 9:53 AM CDT 10/15/2024 9:57 AM CDT Get Moody MD POINT OF CARE TESTING Final Re sult Performing Organization Address [facility] Co de Phone Number [facility] Storyful [facility] CLIA# [id number] [address] [place] [address] * PROTIME-INR (10/15/2024 9:00 AM CDT) PROTIME 14.6 12.7 - 15.1 Seconds 10/15/2024 9:18 AM CDT [facility] INR 1.1 0.9 - 1.1 10/15/2024 9:18 AM CDT [facility] Blood Venipuncture / Unknown 10/15/2024 9:00 AM CDT 10/15/2024 9:00 AM CDT Narrative [facility] - 10/15/2024 9:18 AM CDT INR Therapeutic Range: Adult: 2.0 - 3.0 for pulmonary embolism or prophylaxis against venous thrombosis or systemic embolization. 2.0 - 3.0 for patients with tissue heart valves. 2.5 - 3.5 for patients with mechanical heart valves or post AL. Pediatric (12 years and under): 1.5 - 3.0 Although the target range in children is not well established, INR values of 1.5 - 3.0 are recommended for most patients. Higher values have been used in children with prosthetic cardiac valves and hereditary clotting disorders. Gleason (<3 days) therapeutic ranges have not been established. Get Moody MD HEMATOLOGY ORDERABLES Final Re sult Performing Organization Address City/[facility]/ZIP Co de Phone Number [facility] CLIA# [id number] [address] [place] [address] * MAGNESIUM LEVEL (10/15/2024 9:00 AM CDT) MAGNESIUM 2.0 1.6 - 2.6 mg/dL 10/15/2024 9:45 AM [facility]OR[facility]ORY SERVICES [facility]. [facility] Blood Venipuncture / Unknown 10/15/2024 9:00 AM CDT 10/15/2024 9:00 AM CDT Get Moody MD CHEMISTRY ORDERABLES Final Res ult [facility] SERVICES [facility] CLIA# [id number] [address] [place] [address] * (ABNORMAL) BASIC METABOLIC PANEL (10/15/2024 9:00 AM CDT) SODIUM 140 136 - 145 mmol/L 10/15/2024 9:45 AM [facility] SERVICES [facility] POTASSIUM 3.7 3.5 - 5.0 mmol/L 10/15/2024 9:45 AM [facility]OR[facility] SERVICES [facility]. [facility] CHLORIDE 105 98 - 107 mmol/L 10/15/2024 9:45 AM [facility]. [facility] CO2 26 22 - 29 mmol/L 10/15/2024 9:45 AM [facility]. [facility] CALCIUM 8.2(L) 8.6 - 10.2 mg/dL 10/15/2024 9:45 AM [facility] SERVICES [facility]. JT BUN 15 6 - 20 mg/dL 10/15/2024 9:45 AM [facility]. [facility] CREATININE 1.27(H) 0.67 - 1.17 mg/dL 10/15/2024 9:45 AM [facility] SERVICES [facility]. [facility] GLUCOSE 101(H) 74 - 99 mg/dL 10/15/2024 9:45 AM [facility] SERVICES [facility]. [facility] GFR >60 >=60 mL/min/1.7 3 sq meter 10/15/2024 9:45 AM [facility] SERVICES [facility]. [facility] Comment:eGFR calculated with 2020 CKD-EPI equation. Vegetarian diet, extremely high or low muscle mass, and may affect results. Cystatin C with Glomerular Filtration Rate is a suitable alternative for these patients. ANION GAP 9 8 - 16 mmol/L 10/15/2024 9:45 AM CDT [facility] LABORATORY SERVICES - [facility] Blood Venipuncture / Unknown 10/15/2024 9:00 AM CDT 10/15/2024 9:00 AM CDT Result [facility] Get Moody MD CHEMISTRY ORDERABLES Final Res ult [facility] Storyful [facility] CLIA# [id number] [address] [place] [address] * ECHO TRANSESOPHAGEAL W DOPPLER AND COLOR FLOW (10/15/2024 8:47 AM CDT) Narrative 10/15/2024 8:47 AM CDT Order information only. Exam was auto-finalized. Get Moody MD US ORDERABLES Final Result * TYPE AND SCREEN (10/15/2024 8:40 AM CDT) ABO GROUP O 10/15/2024 10:28 AM CDT [facility] SERVICES -- [facility] RH (D) TYPE Positive 10/15/2024 10:28 AM CDT [facility]ORY SERVICES -- [facility] ANTIBODY SCREEN Negative 10/15/2024 10:28 AM CDT [facility] SERVICES -- [facility] Blood Venipuncture / Unknown 10/15/2024 8:40 AM CDT 10/15/2024 8:47 AM CDT Get Moody MD BLOOD BANK ORDERABLES Edited R esult - Final [facility] -- [facility] CLIA# [id number] [address] [place] [address] * WA ANES INSERT CATH, ART, PERCUT, SHORTTERM (10/15/2024 8:31 AM CDT) Narrative Roger Aguirre AA-C - 10/15/2024 8:31 AM CDT Roger Aguirre AA-C 10/15/2024 8:33 AM Arterial Line Insertion End Time: 10/15/2024 8:25 AM Patient location during procedure: OR Staffing Performed: CORPORATE DEVELOPMENT ASSOCIATE/CAA Authorized by: Berlin Waller MD Performed by: Roger Aguirre AA-C time out called Patient was prepped and draped in usual sterile fashion Indications: multiple ABGs and hemodynamic monitoring Local Anesthetic: lidocaine 1% without epinephrine Anesthetic total: 1 mL Hand hygiene performed prior to procedure Sterile Barriers: gloves, cap and mask Preparation: skin prepped with ChloraPrep Skin prep agent dried: skin prep agent completely dried prior to procedure Patient position: flat Location: right radial Seldinger technique used Catheter type: micropuncture kit, guidewires and dilators removed and 4 Fr Catheter Length (in.): 4 [place] Identification: ultrasound guided Number of attempts: 3 Successful placement: yes Assessment: blood return through port Procedure uneventful Post-procedure: dressing applied and line secured Berlin Waller MD PROCEDURE/MINOR SURGICAL ORDE RUBEN Final Result * WA ANES INSERT ENDOTRACHEAL AIRWAY (10/15/2024 8:22 AM CDT) Roger Corbett AA-C - 10/15/2024 8:22 AM CDT Roger Aguirre AA-C 10/15/2024 8:31 AM Airway Date/Time: 10/15/2024 8:22 AM Location: OR Plan: elective intubation Patient Identity Confirmed by: Verbally with patient and armband Airway: not difficult Staffing Performed: CORPORATE DEVELOPMENT ASSOCIATE/CAA Authorized by: Berlin Waller MD Performed by: Nikunj Goldberg AA-C Indications and Patient Condition: Indications for Airway Management: Anesthesia Sedation Level: general anesthesia Preoxygenated: yes Patient Position: Sniffing Mask Difficulty Assessment: 2 - vent by mask + OA or adjuvant +/- NMBA Oral Airway: 100mm Plan to extubate at end of case: Yes Final Airway Details: Final Airway Type: Endotracheal airway ETT Cuffed: Yes Cuff Volume (mL): 6 Technique Used for Successful ETT Placement: Video laryngoscopy Devices/Methods Used in Placement: Intubating stylet Reason for advanced technique: pre-op assessment Blade Size: 4 Insertion Site: Oral ETT Size (mm): 8.0 Video Laryngoscopy Devices: GlideScope Measured from: Teeth ETT to Teeth (cm): 22 Tube secured with: Tape Placement Verified by: auscultation, end tidal CO2 and chest rise Cormack-Lehane Classification: Grade I - full view of glottis Number of Attempts at Approach: 1 Additional Procedure Information: atraumatic and dentition unchanged Berlin Waller MD PROCEDURE/MINOR SURGICAL ORDE RUBEN Final Result * VERIFICATION BLOOD GROUP (10/15/2024 7:55 AM CDT) ABO GROUP O 10/15/2024 10:19 AM CDT [employer] LABORATORY SERVICES -- [facility] RH (D) TYPE Positive 10/15/2024 10:19 AM CDT [employer] LABORATORY SERVICES -- [facility] Blood Venipuncture / Unknown 10/15/2024 7:55 AM CDT 10/15/2024 8:17 AM CDT Sarita Dawson MD BLOOD BANK ORDERABLES Final Result [facility] SERVICES -- [facility]# [id number] [address] [facility] [place] [address] * (ABNORMAL) CBC WITH DIFFERENTIAL (10/15/2024 7:55 AM CDT) WBC 7.3 4.0 - 9.8 K/uL 10/15/2024 8:09 AM CDT [employer] LABORATORY SERVICES [facility] RBC 6.25(H) 4.50 - 5.40 M/uL 10/15/2024 8:09 AM CDT [employer] LABORATORY SERVICES [facility] HEMOGLOBIN 17.7(H) 13.6 - 16.5 g/dL 10/15/2024 8:09 AM CDT [employer] LABORATORY SERVICES [facility] HEMATOCRIT 54.9(H) 40.0 - 48.0 % 10/15/2024 8:09 AM CDT [employer] LABORATORY SERVICES - [facility] MCV 87.8 82.0 - 99.0 fL 10/15/2024 8:09 AM [employer] LABORATORY SERVICES - [facility] MCH 28.3 27.2 - 32.6 pg 10/15/2024 8:09 AM [employer] LABORATORY SERVICES - [facility] MCHC 32.2 31.5 - 35.5 g/dL 10/15/2024 8:09 AM [employer] LABORATORY SERVICES - [facility] RDW 16.1(H) 11.5 - 14.5 % 10/15/2024 8:09 AM [employer] LABORATORY SERVICES - [facility] RDW-STDEV 50.5(H) 37.1 - 48.7 fL 10/15/2024 8:09 AM [employer] LABORATORY SERVICES - [facility] PLATELETS 145 140 - 350 K/uL 10/15/2024 8:09 AM [employer] LABORATORY SERVICES - [facility] MPV 11.5 9.3 - 12.4 fL 10/15/2024 8:09 AM [employer] LABORATORY SERVICES - [facility] NEUTROPHILS 75 % 10/15/2024 8:09 AM [employer] LABORATORY SERVICES - . [facility] LYMPHOCYTES 14 % 10/15/2024 8:09 AM [employer] LABORATORY SERVICES - . [facility] MONOCYTES 7 % 10/15/2024 8:09 AM [employer] LABORATORY SERVICES - . [facility] EOSINOPHILS 1 % 10/15/2024 8:09 AM [employer] LABORATORY SERVICES - . [facility] BASOPHILS 1 % 10/15/2024 8:09 AM [employer] LABORATORY SERVICES - . [facility] IMMATURE GRANULOCYTES 1 % 10/15/2024 8:09 AM [employer] LABORATORY SERVICES - . [facility] Comment:IG (Immature Granulo cyte) count includes Metamyelocytes, Myelocytes, and Promyelocytes NEUTROPHIL ABSOLUTE 5.47 1.90 - 7.00 K/uL 10/15/2024 8:09 AM [employer] LABORATORY SERVICES - . [facility] LYMPHOCYTE ABSOLUTE 1.04 0.70 - 4.50 K/uL 10/15/2024 8:09 AM [employer] LABORATORY SERVICES - . [facility] MONOCYTE ABSOLUTE 0.54 0.10 - 1.30 K/uL 10/15/2024 8:09 AM CDT [employer] LABORATORY SERVICES - [facility] EOSINOPHIL ABSOLUTE 0.09 0.00 - 0.70 K/uL 10/15/2024 8:09 AM CDT [facility] LABORATORY SERVICES - . JT BASOPHILS ABSOLUTE 0.08 0.00 - 0.20 K/uL 10/15/2024 8:09 AM CDT [facility] LABORATORY SERVICES - . [facility] IMMATURE GRANULOCYTES ABSOLUTE 0.06(H) 0.00 - 0.03 K/uL 10/15/2024 8:09 AM CDT [facility] LABORATORY SERVICES - [facility] Blood Venipuncture / Unknown 10/15/2024 7:55 AM CDT 10/15/2024 8:03 AM CDT Get Moody MD HEMATOLOGY ORDERABLES Final Re sult [facility] CLIA# [id number] [address] [place] [address] * POC LACTIC ACID (10/15/2024 7:49 AM CDT) LACTIC ACID POC 2.0 <=2.0 mmol/L 10/15/2024 7:49 AM CDT [facility] - [facility] SPECIMEN SOURCE, GASES POC Venous 10/15/2024 7:49 AM CDT [facility] Blood 10/15/2024 7:49 AM CDT 10/15/2024 7:51 AM CDT Get Moody MD POINT OF CARE TESTING Final Re sult [facility] CLIA# [id number] [address] [place] [address] * (ABNORMAL) BLOOD GAS,(INCL. H+H, LYTES, GLUC) (10/15/2024 7:49 AM CDT) PH BLOOD POC 7.46(H) 7.32 - 7.43 10/15/2024 7:49 AM CDT [facility] - [facility] PCO2 POC 43 38 - 50 mm Hg 10/15/2024 7:49 AM CDT [facility] - [facility] PO2 POC 43(H) 25 - 40 mm Hg 10/15/2024 7:49 AM CDT [facility] LABORATORY SERVICES [facility] TCO2 (CALC) POC 32(H) 22 - 26 mmol/L 10/15 7:49 AM CDT [place] [id number]|2024-11-19 16:40:00|2024-11-19 16:40:00|XMS_ITS|BKG DAEMON|External Medical Summaries|[id number]|" Clinical Summary Created on: November 19, 2024 Zach Ocampo : 1975 Sex: Male Author Organization [address] [place] [phone] Care Team Providers Care Last Inserter Name Role Phone Mary Anne Cisneros MD Primary Care Provider Social History Tobacco Use Types Packs/Day Years Used Date Smoking Tobacco: Never Assessed Personal Safety Answer Date Recorded Getting School Help Needed Not on file 06/24 Sex and Gender Information Value Date Recorded Sex Assigned at Not on file Legal Sex Male 3:31 PM SLASHER TENDER Gender Identity Not on file Sexual Orientation Not on file Plan of Treatment Not on file Insurance [facility] Care Teams Last Inserter Relationship Specialty Start Date End Date Mary Anne Cisneros MD [address] [address] PCP - General Family Medicine 06/10/22 "
--- OUTSIDE RECORDS SUMMARY | 2024-11-19 16:40 | XMS_ITS | Clinical Summary ---
Author Organization [facility] Address [address] [place] [address] Care Team Providers Care Marketing Pr Intern Name Role Phone Unavailable Primary Care Provider Unavailabl e Source Comments [facility],non-owned Affiliates and Associated Physician Practices is amultiple site organization consisting of ambulatory clinics and hospital sitesin [place], [place], [place] and [place]. This disclosure is being madepursuant to the Care Everywhere program and may not contain all information available regarding this patient. Last updated 18.[facility] Allergies No known active allergies Medications * Be aware that medications may not be up to date on this document. Alwaysverify current medications with the patient. HYDROCHLOROTHIAZID E PO Active AmLODIPine Besylate (NORVASC PO) Active Metoprolol Succinate (TOPROL XL PO) Active Social History Tobacco Use Types Packs/Day Years Used Date Smoking Tobacco: Never Assessed Sex and Gender Information Value Date Recorded Sex Assigned at Not on file Legal Sex Male 11:11 AM CDT Gender Identity Not on file Sexual Orientation [...] 12/10/1995 SCREENING FOR DIABETES 01/14/2018 COVID-19 VACCINE ( - 2023-2 5 season) 2024 DEPRESSION SCREENING 07/03/2024 INFLUENZA VACCINE (Season Ended) 2025 ZOSTER VACCINE (1 of 2) 2026 HIB [...] patient's age to complete this topic Insurance AETNA AETNA
[2024-11-19 16:54] LABS: Hematocrit 52.5 % (40.0-54.0); Hemoglobin 16.5 g/dL (14.0-18.0)
--- NOTE | 2024-11-19 17:00 | PC.NURSE ---
Presents for therapeutic phlebotomy, taken to 201, call light given, awaiting H/H to be resulted prior to phlebotomy.
[2024-11-19 17:09] VITALS: BP 133/78; PULSE 87; RESP 18; TEMP 37.1; O2SAT 95
--- NOTE | 2024-11-19 17:33 | PC.NURSE ---
patient states post H/H has never been done and not needed, will follow up with DR CHAPIN, no dizzyness, or headache, no nausea, feeling fine, removed 240g aprox 250ml, tolerated well. Discharged to home with discharge instructions, lock removed intact.
[2024-11-19 17:36] VITALS: BMI 43.9
== END 2024-11-19 17:30 | disposition home or self-care (01) ==
PROVIDERS: PCP Family Medicine; Visit Provider Internal Medicine Hematology & Oncology
DX: D75.1 Secondary polycythemia (principal)
CPT/HCPCS: 36415; 85014; 85018; 99195

== ENCOUNTER 2025-01-23 16:43 | Outpatient (CLI) | payer OTHER, SELFPAY ==
[2025-01-23 16:59] LABS: Hematocrit 51.7 % (40.0-54.0); Hemoglobin 16.4 g/dL (14.0-18.0)
[2025-01-23 17:00] VITALS: BP 153/97; PULSE 96; RESP 20; TEMP 36.6; O2SAT 96
[2025-01-23 17:19] VITALS: BMI 46.7
[2025-01-23 18:15] VITALS: BP 148/90; PULSE 100; RESP 20; TEMP 36.6; O2SAT 96
--- OUTSIDE RECORDS SUMMARY | 2025-01-24 08:44 | XMS_ITS | Clinical Summary ---
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 Gender Identity Not on file Sexual Orientation Not on file Plan of Treatment Health Maintenance Due Date Last Done Comments Colorectal Cancer Screening Colonoscopy (10 Years) 1975 Annual Physical 12/10/1979 Hepatitis C 1994 DTaP, Tdap and Td Vaccines ( 1 - Tdap) 12/10/1995 12/02/1981 Hepatitis B Vaccines (1 of 3 - 19+ 3-dose series) 12/10/1995 COVID-19 Vaccine (2023-2 5 season) 2024 Meningococcal B Vaccine Aged Out No l onger eligible based on patient's age to complete this topic Meningococcal Vaccine Aged Out No jolly gavin eligible based on patient's age to complete this topic Pneumococcal Vaccine: Pediat rics (0 to 5 Years) and At-Risk Patients (6 to 49 Years) Aged Out No longer eligi ble based on patient's age to complete this topic RSV Immunizations Under 20 Months Aged Out No longer eligible based on patient's age to complete this topic Insurance [employer] Care Teams City Manager Relationship Specialty Start Date End Date Mary Anne Cisneros MD [address] [place] [address] PCP - General FAMILY PRACTICE 11/07/20
--- OUTSIDE RECORDS SUMMARY | 2025-01-24 08:44 | XMS_ITS | Referral Summary ---
Author Organization [place] [id number] [facility] Address [address] [place] [address] Care Team Providers Care Phlebotomist Medical Lab Assistant Name Role Phone Mary Anne Cisneros MD Primary Care Provider [phone] Social History Tobacco Use Types Packs/Day Years Used Date Smoking Tobacco: Never Assessed Personal Safety Answer Date Recorded Getting School Help Needed Not on file 06/24 Sex and Gender Information Value Date Recorded Sex Assigned at Not on file Legal Sex Male 3:31 PM PHLEBOTOMIST ASSOCIATE Gender Identity Not on file Sexual Orientation Not on file Plan of Treatment Not on file Insurance [facility] Care Teams Phlebotomist Medical Lab Assistant Relationship Specialty Start Date End Date Mary Anne Cisneros MD [address] [place] [address] PCP - General Family Medicine 06/10/22
--- OUTSIDE RECORDS SUMMARY | 2025-01-24 08:44 | XMS_ITS | Clinical Summary ---
Author Organization [place] [id number] [facility] Address [address] [place] [address] Care Team Providers Care Geophysical Laboratory Supervisor Name Role Phone Mary Anne Cisneros MD Primary Care Provider [phone] Social History Tobacco Use Types Packs/Day Years Used Date Smoking Tobacco: Never Assessed Personal Safety Answer Date Recorded Getting School Help Needed Not on file 06/24 Sex and Gender Information Value Date Recorded Sex Assigned at Not on file Legal Sex Male 3:31 PM CUT OFF MAN Gender Identity Not on file Sexual Orientation Not on file Plan of Treatment Not on file Insurance [facility] Care Teams Geophysical Laboratory Supervisor Relationship Specialty Start Date End Date Mary Anne Cisneros MD [address] [place] [address] PCP - General Family Medicine 06/10/22
--- OUTSIDE RECORDS SUMMARY | 2025-01-24 08:44 | XMS_ITS | Clinical Summary ---
Author Organization [facility] Address [address] [place] [address] Phone Care Team Providers Care Lehr Operator Name Role Phone Mary Anne Cisneros MD Primary Care Provider Allergies No known active allergies Medications minocycline [...] Encounters Date Type Department Care Team Description 01/15/2025 External Device Data [facility] ABSTRACTION Provider, Abstract 01/15/2025 External Device Data [facility] ABSTRACTION Provider, Abstract 01/15/2025 External Device Data [facility]STRACTION Provider, Abstract 01/15/2025 External Device Data [facility] AB[facility]CTION Provider, Abstract 12/31/2024 External Device Data [facility] ABSTRACTION Provider, Abstract 12/31/2024 External Device Data [facility] ABSTRACTION Provider, Abstract 12/24/2024 External Device Data [facility] ABSTRACTION Provider, Abstract 12/18/2024 External Device Data [facility] ABSTRACTION Provider, Abstract 11/22/2024 External Device Data [facility] ABSTRACTION Provider, Abstract 11/20/2024 External Device Data [facility] ABSTRACTION Provider, Abstract 11/20/2024 External Device Data [facility] ABSTRACTION Provider, Abstract 11/15/2024 3:00 PM CDT Office Visit [facility] AT [address] [place] [address] Ricarda Ingram NP Paroxysmal atrial fibrillation (CMS/HCC) [...] drink = 0.6 oz pur e alcohol) Sex and Gender Information Value Date Recorded Sex Assigned at Male 08/13/2024 8:34 AM CONFIGURATION RELEASE MANAGER Legal Sex Male 7:15 PM CDT Gender Identity Male 08/13/2024 8:34 AM CONFIGURATION RELEASE MANAGER Sexual Orientation Straight 08/13/2024 8: 34 AM CONFIGURATION RELEASE MANAGER Last Filed Vital Signs Vital Sign Reading [...] 3:02 PM CDT Height 177.8 cm (5' 10) 11/15/2024 3:02 PM CDT Body Mass Index 47.35 11/15/2024 3:02 PM CDT Plan of Treatment Upcoming Encounters Date Type Department Care Team (Late st Contact Info) Description 05/19/2025 3:45 PM CONFIGURATION RELEASE MANAGER Office Visit [facility] AT [address] [place] [address] Frank Henriquez MD [address] [place] [address] [address] [place] [address] Health Maintenance Due Date Last Done Comments DTAP/TDAP/TD VACCINES (1 - Tdap) 12/10/1995 HEPATITIS B VACCINES (1 of 3 - 19+ 3-dose series) 03/1996 COLORECTAL SCREENING 2021 Colorectal Cancer Screening 2021 FIT-DNA Q 3 years 2021 FIT/FOBT Q 1 year 2021 Flex Sig/CT Colonography Q 5 years 2021 INFLUENZA VACCINE (#1) 2025 Pre-Diabetes and Diabetes Screening 02/21/202702/21 Medical Devices Implanted Type Area Custom Motorcycle Painter Device Identifier Shelf Expiration Date Model / Serial / Lot Dev Cardiva Vascade Mvp Xl Vvcs 10-12fr [id number] - [id number] Implanted:Qty : 1 on 10/15/2024 by Get Moody MD at [facility] Closure Device Right: [id number] [id number] 07/11/2026 [id number] L / / [id number] Dev Vns Vasc Clsr Vascade Mvp St [id number] - [id number] Implanted:Qty : 1 on 10/15/2024 by Get Moody MD at [facility] Closure Device Left: Groin [employer] NOA [id number] 09/09/2026 800-612C- [id number] / / [id number] Dev Vns Vasc Clsr Vascade Mvp St [id number] - [id number] Implanted:Qty : 1 on 10/15/2024 by Get Moody MD at [facility] Closure Device Left: Groin [employer] [id number] 09/09/2026 [id number]- [id number] / / [id number] Procedures Procedure Name Priority Date/Time Associated Diagnosis Comments [place] ECG ROUTINE ECG W/LEAST 12 LDS W/I&R Routine 11/15/2024 3:30 PM CDT Paroxysmal atrial fibrillation (CMS/HCC) HEMOGLOBIN A1C Routine 02/22/2024 3:07 AM CDT from Last 3 Months or Most Recently Relevant to Health Maintenance Results * [place] ECG ROUTINE ECG W/LEAST 12 LDS W/I&R (11/15/2024 3:30 PM CDT) Narrative [facility] - 11/15/2024 3:30 PM CDT Ricarda Ingram NP 11/15/2024 3:30 PM Sinus rhythm 85 bpm Procedure Note Ricarda Ingram NP - 11/15/2024 3:30 PM CDT Sinus rhythm 85 bpm us Ricarda Ingram NP ECG ORDERABLES Final R esult [facility] CLIA #[id number] [address] [place] [address] * HEMOGLOBIN A1C (02/22/2024 3:07 AM CDT) HEMOGLOBIN A1C 5.2 <5.7 % 02/22/2024 5:24 AM CDT [facility] EST. AVG GLUCOSE, A1C 103 mg/dL 02/22/2024 5:24 AM CDT [facility] Blood Venipuncture / Unknown 02/22/2024 3:07 AM CDT 02/22/2024 3:17 AM CDT Narrative [facility] - 02/22/2024 5:24 AM CDT HGB A1C INTERPRETATION NORMAL: <5.7% PRE-DIABETES: 5.7 - 6.4% DIABETES: 6.5% OR GREATER Filiberto Montiel MD CHEMISTRY ORDERABLES Final Resu lt Performing Organization Address City/[facility]/ZIP Co de Phone Number [facility] CLIA# [id number] [address] [place] [address] from Last 3 Months or Most Recently Relevant to Health Maintenance Insurance [employer] Commercial [employer] Commercial [employer] [place] [address] POS II Advance Directives For more information, please contact: [phone] * Full Code (Latest Code Status on File) Date Activated Date Inactivated Comments 10/15/2024 5:52 AM 10/15/2024 4:19 PM * Full Code Date Activated Date Inactivated Comments 03/03/2024 7:26 AM 03/05/2024 4:25 PM * Full Code Date Activated Date Inactivated Comments 02/22/2024 1:54 AM 02/23/2024 5:57 PM Care Teams Lehr Operator Relationship Specialty Start Date End Date Mary Anne Cisneros MD [address] [place] [address] PCP - General Family Practice 02/22/24
--- OUTSIDE RECORDS SUMMARY | 2025-01-24 08:44 | XMS_ITS | Clinical Summary ---
Author Organization [facility] [employer] Address [address] [place] [address] Care Team Providers Care Rn Hemodialysis Charge Name Role Phone Unavailable Primary Care Provider Unavailabl e Source Comments [facility] [employer],non-owned Affiliates and Associated Physician Practices is amultiple site organization consisting of ambulatory clinics and hospital sitesin [place], [place], [place] and [place]. This disclosure is being madepursuant to the Care Everywhere program and may not contain all information available regarding this patient. Last updated 18.[facility] [employer] Allergies No known active allergies Medications * [...] 12:23 PM CDT Height 177.8 cm (5' 10) 01/14/2018 12:23 PM CDT Body Mass Index [...] VACCINE (1 - 2023-2 5 season) 2024 DEPRESSION SCREENING 07/03/2024 INFLUENZA VACCINE (#1) 2025 ZOSTER VACCINE (1 of 2) 2026 [...]
== END 2025-01-23 16:44 | disposition home or self-care (01) ==
LOC: CHSTREATRM 01-24 08:42
PROVIDERS: PCP Family Medicine; Visit Provider Internal Medicine Hematology & Oncology
DX: D75.1 Secondary polycythemia (principal)
CPT/HCPCS: 36415; 85014; 85018; 99195

== ENCOUNTER 2025-04-21 19:09 | Emergency (ER) | payer OTHER, SELFPAY ==
[2025-04-21] VITALS (21 sets, daily range): BP systolic 134–158; BP diastolic 67–88; PULSE 107–126; RESP 18–33; TEMP 36.8–37.7; O2SAT 92–97
--- NOTE | ~2025-04-21 | CT_ITS ---
CTA chest PE abdomen pel HISTORY:tachycardia, fatigue, dyspnea . COMPARISON: None. TECHNIQUE: Following the noncontrasted colorer hides and skins, axial images of the thorax were obtained following infusion of 100 cc of Isovue 370. Post-processing on an independent workstation was performed to reconstruct MIP images for evaluation of the thoracic vasculature. FINDINGS: Inadequate opacification of the pulmonary arteries limits diagnostic sensitivity for pulmonary embolism. There is no aortic aneurysm or dissection. The lung parenchyma is clear. No pleural effusion or pneumothorax is noted. There is no axillary, mediastinal or hilar adenopathy. Limited evaluation of the upper abdomen demonstrates no gross abnormalities. Review of bone windows demonstrates no osteoblastic or lytic lesions. IMPRESSION: Evaluation for pulmonary emboli are limited due to inadequate opacification of the pulmonary arteries. There are no aortic aneurysm or dissection. No acute lung findings. CTA chest PE abdomen pel INDICATION:tachycardia, fatigue, dyspnea . COMPARISON: None. TECHNIQUE: Axial images of the abdomen and pelvis were obtained following infusion of 100 mL Isovue 370. Dose optimization technique was utilized. FINDINGS: The lung bases are clear. The liver parenchyma is unremarkable. No intrahepatic mass or ductal dilatation is evident. Cholelithiasis is noted. There is no evidence of acute cholecystitis. The pancreas and spleen are normal in appearance. The adrenal glands are symmetric in size. Kidneys enhance symmetrically. No cystic mass is evident. There is no solid mass. There is no hydronephrosis. Evaluation of the stomach and bowel loops are limited due to lack of oral contrast. The appendix is normal in appearance. The bladder and rectum are normal. No free intraperitoneal fluid or air is evident. There is no significant retroperitoneal lymphadenopathy. The aorta, visceral vessels and renal arteries demonstrate normal caliber and patency. The lower thoracic and lumbar vertebrae are in normal alignment. IMPRESSION: No acute abnormality is noted in the abdomen and pelvis. All CT scans at this facility are performed using low dose modulation techniques as appropriate to perform exam including the following: automated exposure control; use of iterative reconstruction technique; adjustment of the mA and/or kV according to patient size (this includes techniques or standardized protocols for targeted exams where dose is matched to indication/reason for exam). Reviewed, dictated and finalized at location S. IMPRESSION: Evaluation for pulmonary emboli are limited due to inadequate opacification of the pulmonary arteries. There are no aortic aneurysm or dissection. No acute lung findings. CTA chest PE abdomen pel INDICATION:tachycardia, fatigue, dyspnea . COMPARISON: None. TECHNIQUE: Axial images of the abdomen and pelvis were obtained following infu brittany of 100 mL Isovue 370. Dose optimization technique was utilized. FINDINGS: The lung bases are clear. The liver parenchyma is unremarkable. No intrahepatic mass or ductal dilatation is evident. Cholelithiasis is noted. There is no evidence of acute cholecystit is. The pancreas and spleen are normal in appearance. The adrenal glands are sy mmetric in size. Kidneys enhance symmetrically. No cystic mass is evident. There is no solid mas s. There is no hydronephrosis. Evaluation of the stomach and bowel loops are limited due to lack of oral contr ast. The appendix is normal in appearance. The bladder and rectum are normal. No free intraperitoneal fluid or air is evid ent. There is no significant retroperitoneal lymphadenopathy. The aorta, visceral vessels and renal arteries demonstrate normal caliber and p atency. The lower thoracic and lumbar vertebrae are in normal alignment. IMPRESSION: No acute abnormality is noted in the abdomen and pelvis. All CT scans at this facility are performed using low dose modulation techniqu es as appropriate to perform exam including the following: automated exposure c ontrol; use of iterative reconstruction technique; adjustment of the mA and/or kV according to patient size (this includes techniques or standardized protocol s for targeted exams where dose is matched to indication/reason for exam).
--- NOTE | ~2025-04-21 | XR_ITS ---
XR chest 1V portable INDICATION:dyspnea . REFERENCE: None FINDINGS: A single AP of the chest demonstrates normal heart size. The lungs are clear. There is no evidence of pneumothorax or pleural effusion. IMPRESSION: No acute pulmonary findings. Reviewed, dictated and finalized at location S.
--- NOTE | 2025-04-21 19:16 | ECG_ITS ---
Test Date: 2025-04-21 19:19:20 Measurements Intervals [place] Rate: 123 P: 32 SC: 162 QRS: 7 QRSD: 89 T: 53 QT: 310 QTc: 444 Interpretive Statements SINUS TACHYCARDIA CONSIDER INFERIOR INFARCT, AGE INDETERMINATE BASELINE ARTIFACT- I, II, III, AVR, AVL, AVF, V4-V6 ABNORMAL ECG Compared to ECG 02/21/2024 17:19:43 Atrial fibrillation no longer present Electronically Signed On 04-21-2025 19:38:22 CDT by Rufus Bautista D.O.
--- NOTE | 2025-04-21 19:29 | ED.GENADULT ---
HPI - General Adult General Chief complaint: Shortness of Breath/Dyspnea Stated complaint: feeling weird Time Seen by Provider: 04/21/25 19:13 History of Present Illness HPI narrative: Zach is a 49M with a PMH of MICHAEL, Afib, BPH, hypothyroidism and folliculitis that presented to the ED not feeling well for 2 weeks. He has felt down and weak and fatigued. It was not getting any better and his HR at home was in the 120s while resting so he came to the ED. No CP but he does admit some nausea, lightheadedness and dyspnea. No bleeding, melena, diarrhea, fevers, cough or rash. Related Data Home Medications ?Medication ?Instructions ?Recorded ?Confirmed ?Last Taken ?Type hydrochlorothiazide 25 mg tablet 25 mg PO DAILY 02/21/24 04/21/25 01/23/25 History testosterone cypionate 200 mg/mL 200 mg IM WEEKLY 02/21/24 04/21/25 01/23/25 History intramuscular oil amlodipine 5 mg tablet 5 mg PO DAILY 04/18/24 04/21/25 01/23/25 History apixaban 5 mg tablet (Eliquis) 5 mg PO DAILY 04/18/24 04/21/25 01/23/25 History aspirin 81 mg tablet 81 mg PO DAILY 04/18/24 04/21/25 01/23/25 History metoprolol succinate 100 mg 150 mg PO DAILY 04/18/24 04/21/25 01/23/25 History tablet,extended release 24 hr doxycycline hyclate 100 mg capsule mg 04/21/25 Unknown History tamsulosin 0.4 mg capsule mg PO 04/21/25 Unknown History Allergies Allergy/AdvReac Type Severity Reaction Status Date / Time No Known Allergies Allergy Verified 04/21/25 19:16 Review of Systems Review of Systems: All systems reviewed & are unremarkable except as noted in HPI and below [facility] Past Medical History Medical History MICHAEL (obstructive sleep apnea) Dyslipidemia Hypertension Exam Const: General: cooperative, healthy appearing, comfortable, no acute distress, well developed, alert, awake and Physically active Orientation/consciousness: oriented to person, oriented to place and oriented to time HENMT: Head: normal to inspection, normocephalic and atraumatic Ears: hearing grossly normal bilaterally and external ears normal Face/Nose/Sinus: Normal external nose present Eyes: General: appearance normal, both eyes and all related structures Periorbital: periorbital findings normal Sclera: sclerae normal Pupils: Equal, round and reactive pupils present Neck: Neck: normal visual inspection Chest: Chest palpation & inspection: normal inspection of the chest Resp: Effort & Inspection: normal respiratory effort, able to speak in complete sentences and no respiratory distress Auscultation: clear to auscultation bilaterally Cardio: Jugular venous distension: no JVD Rate: regular rate Rhythm: regular rhythm GI: Inspection: normal to inspection GI Palp: Yes Soft to palpation Auscultation: normal bowel sounds Skin: General skin exam: normal color and no rashes or lesions noted Neuro: General: oriented to person, oriented to place and oriented to time Cranial nerves: Yes Equal, round and reactive pupils present Extrem: General: normal to inspection Course Course Emergency Course: Ordered Zofran, labs and CXR EKG showed sinus tachycardia with a rate of 123, normal axis, no ST elevation/depression XR chest 1V portable INDICATION:dyspnea . REFERENCE: None FINDINGS: A single AP of the chest demonstrates normal heart size. The lungs are clear. There is no evidence of pneumothorax or pleural effusion. IMPRESSION: No acute pulmonary findings. CTA chest PE abdomen pel HISTORY:tachycardia, fatigue, dyspnea . COMPARISON: None. TECHNIQUE: Following the noncontrasted data warehousing specialist, axial images of the thorax were obtained following infusion of 100 cc of Isovue 370. Post-processing on an independent workstation was performed to reconstruct MIP images for evaluation of the thoracic vasculature. FINDINGS: Inadequate opacification of the pulmonary arteries limits diagnostic sensitivity for pulmonary embolism. There is no aortic aneurysm or dissection. The lung parenchyma is clear. No pleural effusion or pneumothorax is noted. There is no axillary, mediastinal or hilar adenopathy. Limited evaluation of the upper abdomen demonstrates no gross abnormalities. Review of bone windows demonstrates no osteoblastic or lytic lesions. IMPRESSION: Evaluation for pulmonary emboli are limited due to inadequate opacification of the pulmonary arteries. There are no aortic aneurysm or dissection. No acute lung findings. CTA chest PE abdomen pel INDICATION:tachycardia, fatigue, dyspnea . COMPARISON: None. TECHNIQUE: Axial images of the abdomen and pelvis were obtained following infusion of 100 mL Isovue 370. Dose optimization technique was utilized. FINDINGS: The lung bases are clear. The liver parenchyma is unremarkable. No intrahepatic mass or ductal dilatation is evident. Cholelithiasis is noted. There is no evidence of acute cholecystitis. The pancreas and spleen are normal in appearance. The adrenal glands are symmetric in size. Kidneys enhance symmetrically. No cystic mass is evident. There is no solid mass. There is no hydronephrosis. Evaluation of the stomach and bowel loops are limited due to lack of oral contrast. The appendix is normal in appearance. The bladder and rectum are normal. No free intraperitoneal fluid or air is evident. There is no significant retroperitoneal lymphadenopathy. The aorta, visceral vessels and renal arteries demonstrate normal caliber and patency. The lower thoracic and lumbar vertebrae are in normal alignment. IMPRESSION: No acute abnormality is noted in the abdomen and pelvis. TSH came back undetectable. Given this hyperthyroidism is the most likely cause. Will have him continue metoprolol, start methimazole and f/u with PCP and possible rn chemical dependency RAZIA. While he did have tachycardia he had no temp over 40 or AMS so thyroid storm is unlikely at this time. Vital Signs Vital signs: Vital Signs Temperature 98.2 F 04/21/25 19:10 Pulse Rate 125 H 04/21/25 19:10 Respiratory Rate 22 H 04/21/25 19:10 Blood Pressure 155/71 H 04/21/25 19:10 Pulse Oximetry 95 04/21/25 19:10 Oxygen Delivery Room Air 04/21/25 19:10 Temperature 98.2 F 04/21/25 19:10 Pulse Rate 117 H 04/21/25 20:02 Respiratory Rate 30 H 04/21/25 20:02 Blood Pressure 135/67 04/21/25 20:02 Pulse Oximetry 96 04/21/25 20:02 Oxygen Delivery Room Air 04/21/25 19:10 Medical Decision Making Vital Signs Vital Signs: Vital Signs Temperature 98.2 F 04/21/25 19:10 Pulse Rate 125 H 04/21/25 19:10 Respiratory Rate 22 H 04/21/25 19:10 Blood Pressure 155/71 H 04/21/25 19:10 Pulse Oximetry 95 04/21/25 19:10 Oxygen Delivery Room Air 04/21/25 19:10 Temperature 98.2 F 04/21/25 19:10 Pulse Rate 117 H 04/21/25 20:02 Respiratory Rate 30 H 04/21/25 20:02 Blood Pressure 135/67 04/21/25 20:02 Pulse Oximetry 96 04/21/25 20:02 Oxygen Delivery Room Air 04/21/25 19:10 Lab Data 04/21/25 19:39 04/21/25 19:39 Labs: Lab Results 04/21/25 04/21/25 Range/Units 19:31 19:39 WBC 6.9 (4.8-10.8) K/mm3 RBC 5.97 (4.70-6.10) M/mm3 Hgb 16.4 (14.0-18.0) g/dL Hct 50.2 (40.0-54.0) % MCV 84.1 (78.0-102.0) fL MCH 27.5 (27.0-31.0) pg MCHC 32.7 (32-36) g/dL RDW 14.5 H (11.6-14.4) % Plt Count 315 (150-420) K/mm3 MPV 10.7 (8.7-11.0) fl Immature Gran % (Auto) 0.4 H (0.0-0.0) % Neut % (Auto) 63.7 (50.0-70.0) % Lymph % (Auto) 19.2 (18.0-42.0) % Granite % (Auto) 14.7 H (2.0-11.0) % Eos % (Auto) 1.6 (1.0-6.0) % Baso % (Auto) 0.4 (0.0-1.0) % Lymph # (Auto) 1.32 (1.10-4.50) K/mm3 Granite # (Auto) 1.01 H (0.10-0.90) K/mm3 Eos # (Auto) 0.11 (0.02-0.50) K/mm3 Baso # (Auto) 0.03 (0.00-0.10) K/mm3 Abs Immat Gran (auto) 0.03 H (0.00-0.00) K/mm3 Absolute Neuts (auto) 4.39 (1.70-7.20) K/mm3 Absolute Nucleated RBC 0.00 (0.00-0.00) K/mm3 Nucleated RBC % 0.0 (0-0.0) % Sodium 138 (137-145) mmol/L Potassium 3.5 (3.4-5.0) mmol/L Chloride 101 (98-107) mmol/L Carbon Dioxide 28 (22-30) mmol/L Anion Gap 9 (4-12) mmol/L BUN 22 H (9-20) mg/dL Creatinine 1.14 (0.7-1.3) mg/dL Estim Creat Clear Calc Not Reportable Estimated GFR > 60 (59 - ) Glucose 103 (65-110) mg/dL Calculated Osmolality 289 (285-295) mOsm/kg Lactic Acid 1.4 (0.4-2.0) mmol/L Calcium 9.4 (8.4-10.2) mg/dL Magnesium 2.1 (1.6-2.3) mg/dL Total Bilirubin 2.4 H (0.2-1.3) mg/dL AST 38 (17-59) U/L ALT 53 H (6-50) U/L Alkaline Phosphatase 76 (38-126) U/L Troponin I < 0.012 (0.000-0.034) ng/mL NT-Pro-B Natriuret Pep 22 (19.9-100) pg/mL Total Protein 7.8 (6.3-8.2) g/dL Albumin 3.9 (3.5-5.1) g/dL Lipase 200 (23-300) U/L TSH Pending Urine Color Light yellow (Yellow) Urine Appearance Clear (Clear) Urine pH 6.0 (5.0-8.0) Ur Specific [place] 1.020 (1.010-1.020) Urine Protein Negative (Negative) Urine Glucose (UA) Negative (Negative) Urine Ketones Negative (Negative) Ur Blood (Man) Negative (Negative) Urine Nitrate Negative (Negative) Urine Bilirubin Negative (Negative) Urine Urobilinogen 1.0 (0.2-1.0) mg/dL Leukocyte Esterase Rfl Negative (Negative) ANIYAH/UL Urine Opiates Screen Negative (Negative) Urine Methadone Screen Negative (Negative) Ur Barbiturates Screen Negative (Negative) Ur Phencyclidine Scrn Negative (Negative) Ur Amphetamine Screen Negative (Negative) U Benzodiazepines Scrn Negative (Negative) Urine Cocaine Screen Negative (Negative) U Cannabinoids Screen Negative (Negative) Influenza A (RT-PCR) Negative (Negative) Influenza B (RT-PCR) Negative (Negative) RSV (RT-PCR) Negative (Negative) SARS-CoV-2 RNA (RT-PCR) Negative (Negative) Discharge Plan Discharge Clinical Impression: Hyperthyroidism Patient Disposition: Home Condition: Stable Instructions: Hyperthyroidism (ED) Additional Instructions: You were diagnosed with hyperthyroidism while in the emergency department. Please make an urgent care with with you follow up for further testing and treatment. Feel free to return to the ED for any new or worsening symptoms. Patient Language: Faroese Prescriptions: New methimazole 5 mg tablet 5 mg PO DAILY Qty: 7 0RF No Action aspirin 81 mg Tablet 81 mg PO DAILY Eliquis 5 mg Tablet 5 mg PO DAILY metoprolol succinate 100 mg Tablet Extended Release 24 Hr 150 mg PO DAILY amlodipine 5 mg Tablet 5 mg PO DAILY hydrochlorothiazide 25 mg tablet 25 mg PO DAILY testosterone cypionate 200 mg/mL oil 200 mg IM WEEKLY doxycycline hyclate 100 mg capsule tamsulosin 0.4 mg capsule PO Follow-up/Referrals: Danni Cisneros TECH [canvas goods fabricator/US, Nursing]
--- OUTSIDE RECORDS SUMMARY | 2025-04-21 19:31 | XMS_ITS | Clinical Summary ---
Author Organization [facility] [employer] Address [address] [place] [address] Care Team Providers Care Project Management Consultant Name Role Phone Unavailable Primary Care Provider Unavailabl e Source Comments [facility] [employer],non-owned Affiliates and Associated Physician Practices is amultiple site organization consisting of ambulatory clinics and hospital sitesin [place], [place], [place] and [place]. This disclosure is being madepursuant to the Care Everywhere program and may not contain all information available regarding this patient. Last updated 18.[facility] [employer] Allergies No known active allergies Medications * [...] 3-dose series) 12/10/1995 SCREENING FOR DIABETES 01/14/2018 DEPRESSION SCREENING 07/03/2024 COVID-19 VACCINE (1 - 2023-2 5 season) 2025 INFLUENZA VACCINE (#1) 2025 ZOSTER VACCINE (1 [...]
--- OUTSIDE RECORDS SUMMARY | 2025-04-21 19:31 | XMS_ITS | Clinical Summary ---
Author Organization [place] [id number] 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
--- OUTSIDE RECORDS SUMMARY | 2025-04-21 19:31 | XMS_ITS | Clinical Summary ---
Author Organization [facility] Address [address] [place] [address] Phone Care Team Providers Care Rheumatology Specialist Name Role Phone Mary Anne Cisneros MD [...] Encounters Date Type Department Care Team Description 03/18/2025 External Device Data [facility] ABSTRACTION Provider, Abstract 03/05/2025 External Device Data [facility] ABSTRACTION Provider, Abstract 03/04/2025 External Device Data [facility] ABSTRACTION Provider, Abstract 02/25/2025 External Device Data [facility] ABSTRACTION Provider, Abstract 02/19/2025 External Device Data [facility] ABSTRACTION Provider, Abstract 02/18/2025 External Device Data [facility] ABSTRACTION Provider, Abstract 02/05/2025 External Device Data [facility] ABSTRACTION Provider, Abstract [...] Sex Assigned at Male 08/13/2024 8:34 AM 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 Legal Sex Male 7:15 PM CDT Gender Identity Male 08/13/2024 8:34 AM 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 Sexual Orientation Straight 08/13/2024 8: 34 AM 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 Last Filed Vital Signs Vital Sign Reading [...] st Contact Info) Description 05/19/2025 3:45 PM 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 Office Visit [facility] [address] [place] [address] Frank Henriquez MD [facility] [address] [place] [address] Health Maintenance Due Date Last [...] Screening 02/21/202702/21 Medical Devices Implanted Type Area Clinical Quality Rn Device Identifier Shelf Expiration Date Model / Serial / Lot Dev Cardiva Vascade Mvp Xl Vvcs 10-12fr [id number] - [id number] Implanted:Qty : 1 on 10/15/2024 by Get Moody MD at [facility] Closure Device Right: Groin [employer] [id number] 07/11/2026 [id number] L / / [id number] Dev Vns Vasc Clsr Vascade Mvp St [id number] - [id number] Implanted:Qty : 1 on 10/15/2024 by Get Moody MD at [facility] Closure Device Left: Groin [employer] [id number] 09/09/2026 800-612C- 10U / / [id number] Dev Vns Vasc Clsr Vascade Mvp St [id number] - [id number] Implanted:Qty : 1 on 10/15/2024 by Get Moody MD at [facility] Closure Device Left: Groin [employer] NO[employer] [id number] 09/09/2026 800-612C- 10U / / [id number] Procedures Procedure Name Priority Date/Time Associated Diagnosis Comments HEMOGLOBIN A1C Routine 02/22/2024 3:07 AM CDT from Last 3 Months or Most Recently Relevant to Health Maintenance Results * HEMOGLOBIN A1C (02/22/2024 3:07 AM CDT) HEMOGLOBIN A1C 5.2 <5.7 % 02/22/2024 5:24 AM CDT [facility] EST. AVG GLUCOSE, A1C 103 mg/dL 02/22/2024 5:24 AM CDT [facility] Blood Venipuncture / Unknown 02/22/2024 3:07 AM CDT 02/22/2024 3:17 AM CDT Narrative [facility] - 02/22/2024 5:24 AM CDT HGB A1C INTERPRETATION NORMAL: <5.7% PRE-DIABETES: 5.7 - 6.4% DIABETES: 6.5% OR GREATER us Filiberto Montiel MD CHEMISTRY ORDERABLES Final Resu lt [facility] [employer] [facility] CLIA# [id number] [address] [place] [id number] from Last 3 Months or Most Recently Relevant to Health Maintenance Insurance RX [employer]AYHE[employer] Commercial RX RELAYHE[employer] Commercial RX [employer] Commercial [facility] [id number] POS II Advance Directives For more information, please contact: [phone] * Full Code (Latest Code Status on File) Date Activated Date Inactivated Comments 10/15/2024 5:52 AM 10/15/2024 4:19 PM * Full Code Date Activated Date Inactivated Comments 03/03/2024 7:26 AM 03/05/2024 4:25 PM * Full Code Date Activated Date Inactivated Comments 02/22/2024 1:54 AM 02/23/2024 5:57 PM Care Teams Rheumatology Specialist Relationship Specialty Start Date End Date Mary Anne Cisneros MD [address] [place] [address] PCP - General Family Practice 02/22/24
--- OUTSIDE RECORDS SUMMARY | 2025-04-21 19:31 | XMS_ITS | Clinical Summary ---
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 Gender Identity Not on file Sexual Orientation Not on file Plan of Treatment Health Maintenance Due Date Last Done Comments Colorectal Cancer Screening Colonoscopy (10 Years) 1976 Annual Physical 12/10/1979 Hepatitis C 1994 DTaP, Tdap and Td Vaccines ( 1 - Tdap) 12/10/1995 12/02/1981 Hepatitis B Vaccines (1 of 3 - 19+ 3-dose series) 12/10/1995 COVID-19 Vaccine (2023-2 5 season) 2025 Influenza Adult (#1) 2025 Hepatitis A Vaccines Aged Out No long er eligible based on patient's age to complete this topic Meningococcal B Vaccine Aged Out No l [...] patient's age to complete this topic Insurance [employer] Care Teams Fiberglass Roller Relationship Specialty Start Date End Date Mary Anne Cisneros MD [address] [place] [address] PCP - General FAMILY PRACTICE 11/07/20
--- NOTE | 2025-04-21 19:36 | PC.NURSE ---
covid swab sent to lab
[2025-04-21 19:46] LABS: Hematocrit 50.2 % (40.0-54.0); Hemoglobin 16.4 g/dL (14.0-18.0); Immature Granulocyte Percent A 0.4 % (0.0-0.0); Lymphocytes Absolute Auto 1.32 K/mm3 (1.10-4.50); Mean Corpuscular HGB Conc 32.7 g/dL (32-36); Mean Corpuscular Hemoglobin 27.5 pg (27.0-31.0); Mean Corpuscular Volume 84.1 fL (78.0-102.0); Nucleated Red Blood Cells Absolute Auto 0.00 K/mm3 (0.00-0.00); Nucleated Red Blood Cells Perc 0.0 % (0-0.0); Platelet Count Result 315 K/mm3 (150-420); Red Blood Count 5.97 M/mm3 (4.70-6.10); White Blood Count 6.9 K/mm3 (4.8-10.8)
[2025-04-21 19:50] LABS: Add Urine Microscopic? NO; Appearance Urine Clear (Clear); Glucose Urine UA Negative (Negative); Leukocyte Esterase Ur Negative LEU/UL (Negative); Nitrate Urine Negative (Negative); Specific Grav Ur 1.020 (1.010-1.020)
[2025-04-21 19:59] LABS: Alanine Aminotransferase 53 U/L (6-50); Albumin Level 3.9 g/dL (3.5-5.1); Alkaline Phosphatase 76 U/L (38-126); Anion Gap 9 mmol/L (4-12); Aspartate Amino Transferase 38 U/L (17-59); Bilirubin,Total 2.4 mg/dL (0.2-1.3); Blood Urea Nitrogen 22 mg/dL (9-20); Calcium 9.4 mg/dL (8.4-10.2); Carbon Dioxide 28 mmol/L (22-30); Chloride 101 mmol/L (98-107); Estimated Glomerular Filt Rate > 60; Glucose 103 mg/dL (65-110); Lipase 200 U/L (23-300); Magnesium 2.1 mg/dL (1.6-2.3); Osmolality Calculated 289 mOsm/kg (285-295); Potassium 3.5 mmol/L (3.4-5.0); Sodium 138 mmol/L (137-145); Total Protein 7.8 g/dL (6.3-8.2)
[2025-04-21 20:06] LABS: Cannabinoid Screen Urine Negative (Negative)
[2025-04-21 20:13] LABS: NT Pro B Type Natriuretic Pept 22 pg/mL (19.9-100); Troponin I < 0.012 ng/mL (0.000-0.034)
[2025-04-21 20:17] LABS: Influenza A QL RT-PCR Negative (Negative); Influenza B QL RT-PCR Negative (Negative); RSV RNA, RT-PCR Negative (Negative); SARS-CoV-2 RNA PCR Negative (Negative)
[2025-04-21 20:34] LABS: Thyroid Stimulating Hormone < 0.015 uIU/mL (0.465-4.680)
--- NOTE | 2025-04-21 20:47 | PC.NURSE ---
Pt to CT at this time.
--- NOTE | 2025-04-21 21:01 | PC.NURSE ---
Pt returns from CT. Monitoring resumed. Spouse at bedside. Pt and spouse voice no new requests at this time. Pt conversing with spouse in no distress in complete sentences. Call light in reach. Side rails up x 2.
[2025-04-22 06:48] LABS: Free T4 Free Thyroxine > 6.99 ng/dL (0.78-2.19)
[2025-04-22 06:49] LABS: Free T3 > 22.80 pg/mL (2.18-3.98)
== END 2025-04-21 21:55 | disposition home or self-care (01) ==
PROVIDERS: Emergency Provider Family Medicine
DX: E05.90 Thyrotoxicosis, unspecified without thyrotoxic crisis or storm (principal); E03.9 Hypothyroidism, unspecified; I48.91 Unspecified atrial fibrillation; Z79.01 Long term (current) use of anticoagulants; Z79.82 Long term (current) use of aspirin; Z79.899 Other long term (current) drug therapy; Z20.822 Contact with and (suspected) exposure to COVID-19
CPT/HCPCS: 36415; 71045; 71275; 74177; 80053; 80307; 81003; 83605; 83690; 83735; 83880; 84439; 84443; 84481; 84484; 85025; 87637; 93005; 99284; Q9967

== ENCOUNTER 2025-05-12 07:12 | Outpatient (CLI) | payer OTHER, SELFPAY ==
--- NOTE | ~2025-05-12 | US_ITS ---
EXAMINATION: US thyroid DATE: 05/12/2025 07:54 INDICATION: Thyrotoxicosis TECHNIQUE: Multiple ultrasound images of the thyroid were obtained. COMPARISON: None. FINDINGS: The right thyroid lobe measures 5.3 x 2.2 x 2.3 cm. The left thyroid lobe measures 4.4 x 2.2 x 1.8 cm. Wider than tall 1.2 cm mixed solid and cystic nodule with isoechoic solid component, smooth margins and without echogenic foci in the left thyroid lobe. (TI-RADS 2, not suspicious, no FNA recommended). There is normal echotexture, echogenicity and vascular flow throughout the remainder of the thyroid gland. IMPRESSION: 1. Likely benign 1.2 cm TI RADS 2 left thyroid nodule. Reviewed, dictated and finalized at location A. O MAKER
--- NOTE | ~2025-05-12 | US_ITS ---
US right upper quadrant Indication: FATTY LIVER DISEASE, NONALCOHOLIC Comparison: None Technique: Forte-scale and color Doppler images were obtained. Findings: LIVER: Right lobe liver solid appearing lesion measures 2.5 x 1.8 x 2.5 cm. . GALLBLADDER/BILIARY: Within the gallbladder without multiple polyps the largest measuring 11 x 6 mm, no cholelithiasis or wall thickening, no pericholecystic fluid. CBD 3 mm. [place] sign negative. PANCREAS: Pancreas limited by bowel gas. Right Kidney: The right kidney was not imaged. Impression: 1. Probable hemangioma. Large gallbladder polyp. Contrast-enhanced MRI suggested to further evaluate Reviewed, dictated and finalized at location P. COMMUNICATIONS INSTRUCTOR Impression: 1. Probable hemangioma. Large gallbladder polyp. Contrast-enhanced MRI suggeste d to further evaluate
--- OUTSIDE RECORDS SUMMARY | 2025-05-12 07:15 | XMS_ITS | Clinical Summary ---
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 Gender Identity Not on file Sexual Orientation Not on file Plan of Treatment Health Maintenance Due Date Last Done Comments Colorectal Cancer Screening Colonoscopy (10 Years) 1976 Annual Physical 12/10/1979 Hepatitis C 1994 DTaP, Tdap and Td Vaccines ( 1 - Tdap) 12/10/1995 12/02/1981 Hepatitis B Vaccines (1 of 3 - 19+ 3-dose series) 12/10/1995 COVID-19 Vaccine (2024-2 6 season) 2025 Influenza Adult (#1) 2025 Hepatitis [...] age to complete this topic Insurance [employer] Care Teams Geology Instructor Relationship Specialty Start Date End Date Mary Anne Cisneros MD PCP - General FAMILY PRACTICE 11/07/20
--- OUTSIDE RECORDS SUMMARY | 2025-05-12 07:15 | XMS_ITS | Clinical Summary ---
Author Organization [place] [id number] Address [address] [place] [address] Care Team Providers Care Dry Pan Charger Name Role Phone Mary Anne Cisneros MD Primary Care Provider [phone] Social History Tobacco Use Types Packs/Day Years Used Date Smoking Tobacco: Never Assessed Personal Safety Answer Date Recorded Getting School Help Needed Not on file 06/24 Sex and Gender Information Value Date Recorded Sex Assigned at Not on file Legal Sex Male 3:31 PM [employer]ING [employer] Gender Identity Not on file Sexual Orientation Not on file Plan of Treatment Not on file Insurance [facility] Care Teams Dry Pan Charger Relationship Specialty Start Date End Date Mary Anne Cisneros MD [address] [place] [address] PCP - General Family Medicine 06/10/22
--- OUTSIDE RECORDS SUMMARY | 2025-05-12 07:15 | XMS_ITS | Clinical Summary ---
Author Organization [facility] Address [address] [place] [address] Care Team Providers Care Engagement Specialist Name Role Phone Unavailable Primary Care Provider Unavailabl e Source Comments [facility],non-owned Affiliates and Associated Physician Practices is amultiple site organization consisting of ambulatory clinics and hospital sitesin [place], [place], [place] and [place]. This disclosure is being madepursuant to the Care Everywhere program and may not contain all information available regarding this patient. Last updated 18.[facility] Allergies No known active allergies Medications * [...]
== END 2025-05-12 07:13 | disposition home or self-care (01) ==
PROVIDERS: Visit Provider Internal Medicine Endocrinology, Diabetes & Metabolism
DX: E05.91 Thyrotoxicosis, unspecified with thyrotoxic crisis or storm (principal); K76.0 Fatty (change of) liver, not elsewhere classified; E04.1 Nontoxic single thyroid nodule; K82.4 Cholesterolosis of gallbladder
CPT/HCPCS: 76536; 76705